=== PATIENT | male | born 1950 | race American Indian/Alaskan Native ===

== ENCOUNTER 2017-04-15 06:18 | Emergency (ER) | payer MEDICARE, OTHER ==
--- NOTE | 2017-04-15 09:44 | Emergency Department Report ---
ED Rash HPI - HPI Chief Complaint: Skin Rash Stated Complaint: TICK BITE Time Seen by Provider: 04/15/17 09:00 Duration: 2 Days Location: Back Suspected Cause: Insect (tick) Rash Symptoms: No Itching, No Facial Swelling, No Tongue/Oral Swelling, No Breathing Difficulties, No Choking Sensation, No Wheezing/Dyspnea, No Peeling, No Blistering, No Fever, No Lightheaded, No Malaise, No Myalgias Severity: moderate Other History: Patient is a 66-year-old male history of diabetes and hypertension controlled with medication who presents to ED complaining of a tick bite that he noticed on his back right side on Thursday. Patient states Thursday when he went to see his mother at the custodial he asked the nurse at the custodial who told him that it was a taken needed to be taken out so patient got the tick out. Patient states since then he, fever, dizziness, headache, blurry vision, fever or any other symptoms. Patient states he wants to be checked because he was told that he could get Lyme disease ED Review of Systems ROS: Stated complaint: TICK BITE Other details as noted in HPI Constitutional: denies: chills, fever Eyes: denies: eye pain, eye discharge, vision change ENT: denies: ear pain, throat pain Respiratory: denies: cough, shortness of breath, wheezing Cardiovascular: denies: chest pain, palpitations Endocrine: no symptoms reported Gastrointestinal: denies: abdominal pain, nausea, diarrhea Genitourinary: denies: urgency, dysuria Musculoskeletal: denies: back pain, joint swelling, arthralgia Skin: denies: rash, lesions Neurological: denies: headache, weakness, paresthesias Psychiatric: denies: anxiety, depression Hematological/Lymphatic: denies: easy bleeding, easy bruising ED Past Medical Hx - Past Medical History Hx Hypertension: Yes Hx CVA: Yes (left side wkness) Hx Congestive Heart Failure: No Hx Diabetes: Yes Hx Psychiatric Treatment: Yes Hx Asthma: No Hx COPD: No - Surgical History Additional Surgical History: left eye. LEFT ROTATOR CUFF - Social History Smoking Status: Never Smoker Substance Use Type: Alcohol - Medications Home Medications: Home Medications Medication Instructions Recorded Confirmed Last Taken Type Acetaminophen [Acetaminophen TAB] 650 mg PO Q4H PRN #60 tablet 11/10/1207/14/13 13:00 Rx Aspirin [Aspirin BABY CHEW TAB] 81 mg PO QDAY #30 tab.chew 11/10/12 07/14/13 13:00 Rx Gabapentin [Neurontin] 300 mg PO TID #30 capsule 11/10/12 07/14/13 07/14/13 13: 00 Rx Simvastatin [Zocor TAB] 40 mg PO QHS #30 tablet 11/10/12 07/14/13 07/14/13 13: 00 Rx amLODIPine [Norvasc] 10 mg PO DAILY #30 tablet 11/10/12 07/14/13 07/14/13 13:00 Rx metFORMIN [Glucophage] 1,000 mg PO BID #60 11/10/12 07/14/13 07/14/13 13:00 Rx Insulin Glargine,Hum.rec.anlog 30 unit SQ QHS 05/02/13 07/14/13 07/14/13 13:00 History [Lantus] Butalb/Acetamin/Caff 50-325-40 1 each PO Q6H PRN #10 tablet 05/03/13 07/14/13 13:00 Rx [Fioricet] Meclizine [Antivert] 25 mg PO TID PRN #20 tablet 01/20/14 Unknown Rx Amoxicillin [Amoxicillin TAB] 875 mg PO BID #28 tablet 04/15/17 Unknown Rx Rash Exam - Exam General: Vital signs noted. No distress. Alert and acting appropriately. HEENT: No Periorbital Edema, No Conjuctival Injection, No Chemosis, No Perioral Edema, No Tongue Edema, No Uvular Edema, No Compromised Airway, No Drooling Lungs: Yes Good Air Exchange (Normal Breath Sounds), No Wheezes, No Ronchi, No Stridor, No Cough, No Labored Respirations, No Retractions, No Use of Accessory Muscles, No Other Abnormal Lung Sounds Heart: Yes Regular, No Murmur Skin: Yes Erythema (very mild just at bite location), Yes Other (small raised skin at bite location, No Target Lesion observed. No remnants of tick seen), No Urticarial Rash, No Maculopapular Rash, No Morbilliform rash, No Bulla(e), No Excoriations, No Weeping, No Tenderness, No Edema, No Encrustations Other: Positive: Abdomen Normal, Neurologic Normal, Musculoskeletal Normal ED Course Vital Signs 04/15/17 04/15/17 06:20 06:27 Temperature 97.6 F 97.6 F Pulse Rate 66 66 Respiratory 16 18 Rate Blood Pressure 175/89 175/89 O2 Sat by Pulse 99 99 Oximetry ED Medical Decision Making - Medical Decision Making 66-year-old male presented with possible tick bite ED course: Patient received a dose of amoxicillin in the ED. No target lesion seen at the site, no other rash or lesions seen on skin I discussed the patient if she can't pain on palpation for 72 hours and there is a possibility of leia I'm disease is indeed truly a deer tick. I discussed the patient that due to the fact that he was not in the wounds of [place] chances of it being and did take a slim but cannot be ruled out. I discussed with the patient that he will be sent to [facility] prophylaxis antibiotic control. I discussed with the patient if he starts to develop any new symptoms such as fever, bodyaches, dizziness or any worsening symptoms to report to ED immediately. he is in no acute or respiratory distress. He understands instructions given since he would take medication. Discussed with patient to follow up with primary care physician. Critical care attestation.: If time is entered above; I have spent that time in minutes in the direct care of this critically ill patient, excluding procedure time. ED Disposition Clinical Impression: Insect bite Qualifiers: Encounter type: initial encounter Qualified Code(s): W57.XXXA - Bitten or stung by nonvenomous insect and other nonvenomous arthropods, initial encounter Tick bite of back Qualifiers: Encounter type: initial encounter Qualified Code(s): S30.860A - Insect bite ( nonvenomous) of lower back and pelvis, initial encounter; W57.XXXA - Bitten or stung by nonvenomous insect and other nonvenomous arthropods, initial encounter ; W57.XXXA - Bitten or stung by nonvenomous insect and other nonvenomous arthropods, initial encounter Disposition: DC-01 TO HOME OR SELFCARE Is pt being admited?: No Does the pt Need Aspirin: No Condition: Stable Instructions: Lyme Disease (ED), Insect Bite or Sting (ED), Tick Bite (ED) Additional Instructions: Make sure to follow up with the primary care physician as discussed. Take all your medications as you've been prescribed. If you have any worsening symptoms or develop new symptoms please return to ED immediately. Prescriptions: Amoxicillin [Amoxicillin TAB] 875 mg PO BID #28 tablet Referrals: CHRISSIE EVANS MD [Primary Care Provider] - 3-5 Days ABDULKADIR GERARDO MD [Staff Physician] - 3-5 Days [facility] [Outside] - 3-5 Days [facility] [Outside] - 3-5 Days Forms: Work/School Release Form(ED) Time of Disposition: 09:55
[2017-04-15] MEDS ORDERED: TRIMOX ONE (10:10)
[2017-04-15] MEDS ORDERED: TRIMOX PO ONE (10:12)
[2017-04-15 10:13] VITALS: BP 165/74
== END 2017-04-15 10:13 | disposition home or self-care (01) ==
LOC: ED 06:18
DX: S30.860A Insect bite (nonvenomous) of lower back and pelvis, initial encounter (principal); I10 Essential (primary) hypertension; E11.9 Type 2 diabetes mellitus without complications; I69.359 Hemiplegia and hemiparesis following cerebral infarction affecting unspecified side; Z79.4 Long term (current) use of insulin; Z88.6 Allergy status to analgesic agent; W57.XXXA Bitten or stung by nonvenomous insect and other nonvenomous arthropods, initial encounter; Y93.89 Activity, other specified; Y92.89 Other specified places as the place of occurrence of the external cause; Y99.8 Other external cause status
CPT/HCPCS: 99282

== ENCOUNTER 2019-01-05 06:00 | Emergency (ER) | payer MEDICARE, OTHER ==
--- NOTE | 2019-01-05 08:49 | Emergency Department Report ---
ED Dizziness HPI - General Chief Complaint: Dizziness Stated Complaint: DIZZINESS Source: patient Mode of arrival: Ambulatory Limitations: No Limitations - History of Present Illness Initial Comments: Patient is a 68-year-old male that presents emergency room with complaints of d izziness and falling 2 weeks. Patient states it is now becoming more frequent. Patient states he has fallen multiple times per day due to the dizziness. Patient states his dizziness is better with rest and lying flat and is worse with exertion and position. Patient states he feels like the room is spinning. Patient states he has to use the wall to walk due to his unsteady gait and dizziness. Patient denies hitting his head. Patient denies trauma to his head. MD Complaint: dizziness, lightheadedness -: Sudden Timing: gradual onset Description: lightheadedness, difficulty walking History of Same: No History of Trauma: No Severity: severe Improves With: rest Worsens With: movement, position, exertion Associated Symptoms: weakness. denies: ataxia, chest pain, confusion, cough, diaphoresis, fever/chills, loss of appetite, malaise, rash, seizure, shortness of breath - Related Data Home Medications Medication Instructions Recorded Confirmed Last Taken Insulin Glargine,Hum.rec.anlog 30 unit SQ QHS 05/02/13 07/14/13 07/14/13 13:00 [Lantus] Previous Rx's Medication Instructions Recorded Last Taken Type Acetaminophen [Acetaminophen TAB] 650 mg PO Q4H PRN #60 tablet 11/10/12 07/14/13 13:00 Rx Aspirin [Aspirin BABY CHEW TAB] 81 mg PO QDAY #30 tab.chew 11/10/12 07/14/13 13:00 Rx Gabapentin 300 mg PO TID #30 capsule 11/10/12 07/14/13 13:00 Rx Simvastatin [Zocor TAB] 40 mg PO QHS #30 tablet 11/10/12 07/14/13 13:00 Rx amLODIPine 10 mg PO DAILY #30 tablet 11/10/12 07/14/13 13:00 Rx metFORMIN [Glucophage] 1,000 mg PO BID #60 11/10/12 07/14/13 13:00 Rx Butalb/Acetamin/Caff 50-325-40 1 each PO Q6H PRN #10 tablet 05/03/13 07/14/13 13:00 Rx [Fioricet] Meclizine [Antivert] 25 mg PO TID PRN #20 tablet 01/20/14 Unknown Rx Amoxicillin [Amoxicillin TAB] 875 mg PO BID #28 tablet 04/15/17 Unknown Rx Allergies Allergy/AdvReac Type Severity Reaction Status Date / Time codeine Allergy Rash Verified 01/20/14 08:17 ED Review of Systems ROS: Stated complaint: DIZZINESS Other details as noted in HPI Constitutional: denies: chills, fever Eyes: denies: eye pain, eye discharge, vision change ENT: denies: ear pain, throat pain Respiratory: denies: cough, shortness of breath, wheezing Cardiovascular: denies: chest pain, palpitations Endocrine: no symptoms reported Gastrointestinal: denies: abdominal pain, nausea, diarrhea Genitourinary: denies: urgency, dysuria Musculoskeletal: denies: back pain, joint swelling, arthralgia Skin: denies: rash, lesions Neurological: weakness, abnormal gait. denies: headache, paresthesias Psychiatric: denies: anxiety, depression Hematological/Lymphatic: denies: easy bleeding, easy bruising ED Past Medical Hx - Past Medical History Previous Medical History?: Yes Hx Hypertension: Yes Hx CVA: Yes (left side wkness) Hx Congestive Heart Failure: No Hx Diabetes: Yes Hx Psychiatric Treatment: Yes Hx Asthma: No Hx COPD: No - Surgical History Past Surgical History?: Yes Additional Surgical History: left eye. LEFT ROTATOR CUFF - Family History Family history: no significant - Social History Smoking Status: Never Smoker Substance Use Type: None - Medications Home Medications: Home Medications Medication Instructions Recorded Confirmed Last Taken Type Acetaminophen [Acetaminophen TAB] 650 mg PO Q4H PRN #60 tablet 11/10/12 07/14/13 07/14/13 13:00 Rx Aspirin [Aspirin BABY CHEW TAB] 81 mg PO QDAY #30 tab.chew 11/10/12 07/14/13 07/14/13 13:00 Rx Gabapentin 300 mg PO TID #30 capsule 11/10/12 07/14/13 07/14/13 13:00 Rx Simvastatin [Zocor TAB] 40 mg PO QHS #30 tablet 11/10/12 07/14/13 07/14/13 13:00 Rx amLODIPine 10 mg PO DAILY #30 tablet 11/10/12 07/14/13 07/14/13 13:00 Rx metFORMIN [Glucophage] 1,000 mg PO BID #60 11/10/12 07/14/13 07/14/13 13:00 Rx Insulin Glargine,Hum.rec.anlog 30 unit SQ QHS 05/02/13 07/14/13 07/14/13 13:00 History [Lantus] Butalb/Acetamin/Caff 50-325-40 1 each PO Q6H PRN #10 tablet 05/03/13 07/14/13 07/14/13 13:00 Rx [Fioricet] Meclizine [Antivert] 25 mg PO TID PRN #20 tablet 01/20/14 Unknown Rx Amoxicillin [Amoxicillin TAB] 875 mg PO BID #28 tablet 04/15/17 Unknown Rx ED Physical Exam - General Limitations: No Limitations General appearance: alert, in no apparent distress - Head Head exam: Present: atraumatic, normocephalic - Eye Eye exam: Present: normal appearance, PERRL Pupils: Present: normal accommodation - ENT ENT exam: Present: mucous membranes moist - Neck Neck exam: Present: normal inspection - Respiratory Respiratory exam: Present: normal lung sounds bilaterally. Absent: respiratory distress, wheezes, rales - Cardiovascular Cardiovascular Exam: Present: regular rate, normal rhythm. Absent: systolic murmur, diastolic murmur, rubs, gallop - GI/Abdominal GI/Abdominal exam: Present: soft, normal bowel sounds. Absent: distended, tenderness, guarding - Rectal Rectal exam: Present: deferred - Extremities Exam Extremities exam: Present: normal inspection, full ROM, normal capillary refill. Absent: tenderness, pedal edema, calf tenderness - Back Exam Back exam: Present: normal inspection - Neurological Exam Neurological exam: Present: alert, oriented X3, abnormal gait - Expanded Neurological Exam Expanded Best Eye Response (Ipava): (4) open spontaneously Best Motor Response (Ipava): (6) obeys commands Best Verbal Response (Ipava): (5) oriented Joseline Total: 15 - Psychiatric Psychiatric exam: Present: normal affect, normal mood - Skin Skin exam: Present: warm, dry, intact, normal color. Absent: rash ED Course Vital Signs 01/05/19 01/05/19 01/05/19 06:03 07:48 09:41 Temperature 98.2 F Pulse Rate 60 61 52 L Respiratory 16 16 20 Rate Blood Pressure 146/81 Blood Pressure 130/85 115/58 [Right] O2 Sat by Pulse 97 98 95 Oximetry 01/05/19 01/05/19 11:30 12:40 Temperature Pulse Rate 50 L 70 Respiratory 18 18 Rate Blood Pressure Blood Pressure 133/88 144/88 [Right] O2 Sat by Pulse 95 98 Oximetry - Reevaluation(s) Reevaluation #1: Discussed all results with patient. I discussed plan of care and transfer patient. Patient agrees with plan of care and transfer. 01/05/19 11:09 - Consultations Consultation #1: [facility] surgery at [place] consult. 01/05/19 11:12 [facility] [place] has accepted the patient at the [facility]. Dr. toribio has accepted 01/05/19 11:39 ED Medical Decision Making - Lab Data Result diagrams: 01/05/19 09:20 01/05/19 09:20 - EKG Data -: EKG Interpreted by Ct EKG shows normal: sinus rhythm, axis, intervals, QRS complexes, ST-T waves Rate: normal - Radiology Data Radiology results: report reviewed CT head/brain wo con INDICATION / CLINICAL INFORMATION: 68 years Male; dizziness. TECHNIQUE: Routine CT head without contrast. All CT scans at this location are performed using CT dose reduction for ALARA by means of automated exposure control. COMPARISON: The study is compared to the previous CT of 01/10/2014. FINDINGS: BRAIN / INTRACRANIAL CONTENTS: There is a focus of increased attenuation extending inferiorly from the frontal horn of the right lateral ventricle measuring approximately 1.8 cm in greatest AP dimension. There does not appear to be significant surrounding edema. However, this finding has developed from the previous study and would be compatible with acute hemorrhage. There is continued extensive cerebral white matter disease most consistent with advanced microvascular angiopathy. The findings again extend to the right frontal subcortical region compatible with old infarct. The findings also include the ganglia capsular regions and correlate with the prior study. The ventricular system does not appear to significant changed in size. ORBITS: No significant abnormality of visualized orbits. SINUSES / MASTOIDS: There is scattered opacification and mucosal thickening involving the maxillary, ethmoid and frontal sinuses. CRANIOCERVICAL JUNCTION: No significant abnormality. ADDITIONAL FINDINGS: None. IMPRESSION: 1. There has been interval development of a 1.8 cm focus of increased attenuation along the inferior right frontal horn indicative of acute hemorrhage as detailed above. 2. There is continued extensive microvascular angiopathy as described - Medical Decision Making is a 68-year-old male that presents emergency room with complaints of dizziness, lightheadedness and frequent falls and abnormal gait. Patient found to have intracranial hemorrhage. Patient transferred to [facility] for neurosurgery service. Patient is stable for transport. Patient's labs essentially unremarkable. Patient found to have an elevated d-dimer but no other symptoms of a PE. - Differential Diagnosis intercranial hemorrhage. Dizziness. Lightheadedness. Abnormal gait. Critical Care Time: Yes Critical care time in (mins) excluding proc time.: 45 Critical care attestation.: If time is entered above; I have spent that time in minutes in the direct care of this critically ill patient, excluding procedure time. Critical Care Time: 45 minutes ED Disposition Clinical Impression: Abnormal gait, Dizziness, Light headedness, Frequent falls ICH (intracerebral hemorrhage) Qualifiers: Intracerebral hemorrhage etiology: nontraumatic Cerebral hemorrhage location: unspecified cerebral location Laterality: unspecified laterality Qualified Code(s): I61.9 - Nontraumatic intracerebral hemorrhage, unspecified Disposition: DC/TX-70 ANOTHER TYPE HLTHCARE Is pt being admited?: No Does the pt Need Aspirin: No Condition: Critical Time of Disposition: 11:14
--- NOTE | 2019-01-05 09:27 | XRay Report ---
CHEST 1 VIEW INDICATION: dizziness. COMPARISON: None. FINDINGS: Support devices: None. Heart: Within normal limits. Pulmonary vasculature: Normal. Lungs/Pleura: No acute air space or interstitial disease. Additional findings: None. IMPRESSION: Normal chest. Signer Name: Kali Hill MD Signed: 01/05/2019 9:23 AM Workstation Name: [id number]
[2019-01-05 09:44] LABS: Basophils % (Auto) 0.7 % (0.0-1.8); Eosinophils # (Auto) 0.3 K/mm3 (0.0-0.4); Eosinophils % (Auto) 6.2 % (0.0-4.3); Hematocrit 38.5 % (35.5-45.6); Hemoglobin 11.9 gm/dl (11.8-15.2); Lymphocytes # (Auto) 1.6 K/mm3 (1.2-5.4); Lymphocytes % (Auto) 31.9 % (13.4-35.0); Mean Corpuscular HGB Conc 31 % (32-34); Monocytes # (Auto) 0.5 K/mm3 (0.0-0.8); Monocytes % (Auto) 9.7 % (0.0-7.3); Platelet Count 197 K/mm3 (140-440); Red Blood Count 5.89 M/mm3 (3.65-5.03); Red Cell Distribution Width 16.7 % (13.2-15.2)
[2019-01-05 09:50] LABS: Mean Corpuscular Volume 66 fl (84-94)
[2019-01-05 10:05] LABS: Creatine Kinase MB 1.8 ng/mL (0.0-4.0)
[2019-01-05 10:08] LABS: Alanine Aminotransferase 12 units/L (7-56); Albumin 3.8 g/dL (3.9-5); BUN/Creatinine Ratio 11; Blood Urea Nitrogen 12 mg/dL (9-20); Hemolysis Index 6
--- NOTE | 2019-01-05 10:59 | Cat Scan Report ---
CT head/brain wo con INDICATION / CLINICAL INFORMATION: 68 years Male; dizziness. TECHNIQUE: Routine CT head without contrast. All CT scans at this location are performed using CT dos e reduction for ALARA by means of automated exposure control. COMPARISON: The study is compared to the previous CT of 01/10/2014. FINDINGS: BRAIN / INTRACRANIAL CONTENTS: There is a focus of increased attenuation extending inferiorly from th e frontal horn of the right lateral ventricle measuring approximately 1.8 cm in greatest AP dimension . There does not appear to be significant surrounding edema. However, this finding has developed from the previous study and would be compatible with acute hemorrhage. There is continued extensive cerebral white matter disease most consistent with advanced microvascula r angiopathy. The findings again extend to the right frontal subcortical region compatible with old i nfarct. The findings also include the ganglia capsular regions and correlate with the prior study. Th e ventricular system does not appear to significant changed in size. ORBITS: No significant abnormality of visualized orbits. SINUSES / MASTOIDS: There is scattered opacification and mucosal thickening involving the maxillary, ethmoid and frontal sinuses. CRANIOCERVICAL JUNCTION: No significant abnormality. ADDITIONAL FINDINGS: None. IMPRESSION: 1. There has been interval development of a 1.8 cm focus of increased attenuation along the inferior right frontal horn indicative of acute hemorrhage as detailed above. 2. There is continued extensive microvascular angiopathy as described The findings represent a positive clinical test result and were discovered at 9:55 AM and called to Geronimo cunha, the nurse in the ER, at 9:57 AM Central standard time. Signer Name: Gerald Webber MD Signed: 01/05/2019 10:54 AM Workstation Name: [id number]
[2019-01-05 11:26] LABS: INR 1.02 (0.87-1.13); Partial Thromboplastin Time 28.8 Sec. (24.2-36.6)
[2019-01-05] MEDS ORDERED: levETIRAcetam 1000 MG/NS 0.75% 1,000 MG/100 ML BAG IV ONE (11:39)
[2019-01-05 15:09] VITALS: BP 133/80
== END 2019-01-05 15:08 | disposition other institution (70) ==
LOC: ED 06:00
DX: S06.369A Traumatic hemorrhage of cerebrum, unspecified, with loss of consciousness of unspecified duration, initial encounter (principal); I10 Essential (primary) hypertension; E11.9 Type 2 diabetes mellitus without complications; W18.30XA Fall on same level, unspecified, initial encounter; Y93.89 Activity, other specified; Y92.89 Other specified places as the place of occurrence of the external cause; Y99.8 Other external cause status; Z86.73 Personal history of transient ischemic attack (TIA), and cerebral infarction without residual deficits
CPT/HCPCS: 36415; 70450; 71045; 80053; 82550; 82553; 84484; 85025; 85379; 85610; 85730; 93005; 93010; 96374; 99291; J1953

== ENCOUNTER 2019-01-13 11:59 | Inpatient (IN) | payer MEDICARE, OTHER ==
--- NOTE | 2019-01-13 12:56 | Event Note ---
ED Screening Note Date of service: 01/13/19 Time: 12:52 ED Screening Note: 68 y o male return to ED after d/c from Neurosurgery at [place] on thursday cc of dizziness and head tenderness worsening this morning so he came in. This initial assessment/diagnostic orders/clinical plan/treatment(s) is/are subject to change based on patients health status, clinical progression and re- assessment by fellow clinical providers in the ED. Further treatment and workup at subsequent clinical providers discretion. Patient/guardian urged not to elope from the ED as their condition may be serious if not clinically assessed and managed. Initial orders include: labs CT
[2019-01-13 13:42] LABS: Basophils % (Auto) 0.6 % (0.0-1.8); Eosinophils # (Auto) 0.3 K/mm3 (0.0-0.4); Eosinophils % (Auto) 4.6 % (0.0-4.3); Hematocrit 38.5 % (35.5-45.6); Hemoglobin 11.9 gm/dl (11.8-15.2); Lymphocytes # (Auto) 2.1 K/mm3 (1.2-5.4); Lymphocytes % (Auto) 28.6 % (13.4-35.0); Mean Corpuscular HGB Conc 31 % (32-34); Monocytes # (Auto) 0.9 K/mm3 (0.0-0.8); Monocytes % (Auto) 12.2 % (0.0-7.3); Platelet Count 290 K/mm3 (140-440); Red Blood Count 5.94 M/mm3 (3.65-5.03); Red Cell Distribution Width 16.3 % (13.2-15.2)
[2019-01-13 13:44] LABS: Mean Corpuscular Volume 65 fl (84-94)
--- NOTE | 2019-01-13 13:47 | Cat Scan Report ---
CT BRAIN: 01/13/2019 INDICATION / CLINICAL INFORMATION: Medical Clearance Psych. COMPARISON: 01/05/2019 FINDINGS: BRAIN/INTRACRANIAL STRUCTURES: Unenhanced CT images of the brain were obtained and compared to the pr ior exam from 01/05/2019. The previously seen hemorrhagic lesion in the right inferior frontal lobe is no longer visible as a h yperdense abnormality. Prominent diffuse white matter hypoattenuation is present throughout the cerebral hemispheric white m atter, and including the area of the recently seen hemorrhage. There is no evidence of acute hemorrhage. Age-related atrophic changes are present. There are no abnormal extra-axial fluid collections. EXTRACRANIAL STRUCTURES: Unremarkable. IMPRESSION: Evolving right frontal parenchymal hemorrhage. Extensive chronic and age-related changes. All CT scans at this location are performed using dose reduction to ALARA by means of automated expos ure control. Signer Name: Robinson Lozada MD Signed: 01/13/2019 1:43 PM Workstation Name: [id number]
[2019-01-13 13:48] LABS: INR 1.07 (0.87-1.13); Partial Thromboplastin Time 28.1 Sec. (24.2-36.6)
[2019-01-13 14:00] LABS: Alanine Aminotransferase 12 units/L (7-56); Albumin 4.1 g/dL (3.9-5); BUN/Creatinine Ratio 14; Blood Urea Nitrogen 15 mg/dL (9-20); Calcium 9.5 mg/dL (8.4-10.2); Hemolysis Index 0
--- NOTE | 2019-01-13 14:26 | Emergency Department Report ---
ED Neuro Deficit HPI - General Chief Complaint: Neuro Symptoms/Deficit Stated Complaint: CT SCAN Time Seen by Provider: 01/13/19 14:15 Source: patient Mode of arrival: Ambulatory Limitations: No Limitations - History of Present Illness Initial Comments: Patient is a 68-year-old male Emergency room with worsening dizziness. Patient states she's having difficulties sitting up due to the dizziness. Patient states she was transferred a few weeks back to [place] for a bleed. Patient states she was discharged from her and told to follow-up if symptoms worsened or if he needed a repeat CT. Patient denies headache. Patient denies difficulty walking. Patient states he came here by private vehicle and ambulate to the hospital. Patient denies chest pain shortness of breath. -: Sudden Location: other (dizziness) History of same: Yes Place: home Severity: moderate Quality: constant Improves With: rest Worsens With: other On Anticoagulants: No Context: sudden onset Associated Symptoms: denies: confusion, chest pain, cough, diaphoresis, fever/chills, headaches, loss of appetite, malise, nausea/vomiting, vertigo, seizures, shortness of breath, syncope, weakness Treatments Prior to Arrival: none - Related Data Home Medications: Home Medications Medication Instructions Recorded Confirmed Last Taken Tamsulosin [Flomax] 0.4 mg PO QHS 01/13/19 01/13/19 01/12/19 21:00 Previous Rx's Medication Instructions Recorded Last Taken Type Aspirin [Aspirin BABY CHEW TAB] 81 mg PO QDAY #30 tab.chew 11/10/12 07/14/13 13:00 Rx Gabapentin 300 mg PO TID #30 capsule 11/10/12 07/14/13 13:00 Rx Simvastatin [Zocor TAB] 40 mg PO QHS #30 tablet 11/10/12 07/14/13 13:00 Rx amLODIPine 10 mg PO DAILY #30 tablet 11/10/12 01/13/19 Rx 0800 metFORMIN [Glucophage] 1,000 mg PO BID #60 11/10/12 01/13/19 Rx 0800 Allergies/Adverse Reactions: Allergies Allergy/AdvReac Type Severity Reaction Status Date / Time codeine Allergy Rash Verified 01/13/19 17:31 ED Review of Systems ROS: Stated complaint: CT SCAN Other details as noted in HPI Constitutional: denies: chills, fever Eyes: denies: eye pain, eye discharge, vision change ENT: denies: ear pain, throat pain Respiratory: denies: cough, shortness of breath, wheezing Cardiovascular: denies: chest pain, palpitations Endocrine: no symptoms reported Gastrointestinal: denies: abdominal pain, nausea, diarrhea Genitourinary: denies: urgency, dysuria Musculoskeletal: denies: back pain, joint swelling, arthralgia Skin: denies: rash, lesions Neurological: as per HPI. denies: headache, weakness, paresthesias Psychiatric: denies: anxiety, depression Hematological/Lymphatic: denies: easy bleeding, easy bruising ED Past Medical Hx - Past Medical History Previous Medical History?: Yes Hx Hypertension: Yes Hx CVA: Yes (left side wkness) Hx Congestive Heart Failure: No Hx Diabetes: Yes Hx Psychiatric Treatment: Yes Hx Asthma: No Hx COPD: No - Surgical History Past Surgical History?: Yes Additional Surgical History: left eye. LEFT ROTATOR CUFF - Social History Smoking Status: Former Smoker Substance Use Type: None - Medications Home Medications: Home Medications Medication Instructions Recorded Confirmed Last Taken Type Aspirin [Aspirin BABY CHEW TAB] 81 mg PO QDAY #30 tab.chew 11/10/12 01/13/19 07/14/13 13:00 Rx Gabapentin 300 mg PO TID #30 capsule 11/10/12 01/13/19 07/14/13 13:00 Rx Simvastatin [Zocor TAB] 40 mg PO QHS #30 tablet 11/10/12 01/13/19 07/14/13 13:00 Rx amLODIPine 10 mg PO DAILY #30 tablet 11/10/12 01/13/19 01/13/19 Rx 0800 metFORMIN [Glucophage] 1,000 mg PO BID #60 11/10/12 01/13/19 01/13/19 Rx 0800 Tamsulosin [Flomax] 0.4 mg PO QHS 01/13/19 01/13/19 01/12/19 21:00 History ED Neuro Physical Exam - General Limitations: No Limitations General appearance: alert, in no apparent distress Suspected Stroke: No - Head Head exam: Present: atraumatic, normocephalic - Eye Eye exam: Present: normal appearance - ENT ENT exam: Present: mucous membranes moist - Neck Neck exam: Present: normal inspection - Respiratory Respiratory exam: Present: normal lung sounds bilaterally. Absent: respiratory distress, wheezes, rales - Cardiovascular Cardiovascular Exam: Present: regular rate, normal rhythm. Absent: systolic murmur, diastolic murmur, rubs, gallop - GI/Abdominal GI/Abdominal exam: Present: soft, normal bowel sounds - Rectal Rectal exam: Present: deferred - Extremities Exam Extremities exam: Present: normal inspection - Back Exam Back exam: Present: normal inspection - Neurological Exam Neurological exam: Present: alert, oriented X3 - NIHSS Assessment Interval: Baseline 1a. Level of Consciousness: alert/keenly responsive 1b. LOC Questions: answers both correctly 1c. LOC Commands: performs tasks correctly 2. Best Gaze: normal 3. Visual: no visual loss 4. Facial Palsy: normal symmetrical movement 5b. Motor Arm Right: no drift 5a. Motor Arm Left: no drift 6a. Motor Leg Left: no drift 6b. Motor Leg Right: no drift 7. Limb Ataxia: absent 8. Sensory: normal 9. Best Language: no aphasia 10. Dysarthria: normal 11. Extinction/Inattention: no abnormality Total Score: 0 Stroke Severity: No Stroke Symptoms - Psychiatric Psychiatric exam: Present: normal affect, normal mood - Skin Skin exam: Present: warm, dry, intact, normal color. Absent: rash ED Course Vital Signs 01/13/19 01/13/19 01/13/19 12:46 14:20 14:30 Temperature 97.9 F Pulse Rate 83 66 72 Respiratory 20 9 L 21 Rate Blood Pressure 129/78 143/76 O2 Sat by Pulse 96 100 98 Oximetry 01/13/19 01/13/19 01/13/19 14:46 15:00 15:15 Temperature Pulse Rate 69 69 67 Respiratory 18 19 20 Rate Blood Pressure 154/67 154/67 155/86 O2 Sat by Pulse 97 97 95 Oximetry 01/13/19 01/13/19 01/13/19 15:30 15:46 16:00 Temperature Pulse Rate 69 68 67 Respiratory 21 18 15 Rate Blood Pressure 155/86 166/89 166/89 O2 Sat by Pulse 98 95 99 Oximetry 01/13/19 01/13/19 01/13/19 16:16 16:30 16:45 Temperature Pulse Rate 66 70 77 Respiratory 13 20 15 Rate Blood Pressure 172/86 172/86 172/88 O2 Sat by Pulse 95 97 96 Oximetry 01/13/19 01/13/19 17:00 17:15 Temperature Pulse Rate 72 75 Respiratory 24 17 Rate Blood Pressure 172/88 148/85 O2 Sat by Pulse 95 96 Oximetry - Reevaluation(s) Reevaluation #1: I discussed all results with patient. I discussed plan of care outpatient. Patient agrees with plan of care and admission. 01/13/19 15:55 - Consultations Consultation #1: [place] transfer center consult. 01/13/19 14:30 I discussed case with Dr. Anurag Tolbert a neurosurgeon [place]. Dr. Tolbert recommends the patient be admitted here for general neurology, since the bleeding has not increased increased in size. 01/13/19 15:37 Consultation #2: Hospitalist consult for admission. Hospitalist admit patient. Hospitalist to place orders. 01/13/19 15:55 - Lab Data Result diagrams: 01/13/19 13:17 01/13/19 13:17 Lab Results 01/13/19 01/13/19 01/13/19 Range/Units 13:17 13:17 13:17 WBC 7.5 (4.5-11.0) K/mm3 RBC 5.94 H (3.65-5.03) M/mm3 Hgb 11.9 (11.8-15.2) gm/dl Hct 38.5 (35.5-45.6) % MCV 65 L (84-94) fl MCH 20 L (28-32) pg MCHC 31 L (32-34) % RDW 16.3 H (13.2-15.2) % Plt Count 290 (140-440) K/mm3 Lymph % (Auto) 28.6 (13.4-35.0) % [place] % (Auto) 12.2 H (0.0-7.3) % Eos % (Auto) 4.6 H (0.0-4.3) % Baso % (Auto) 0.6 (0.0-1.8) % Lymph # 2.1 (1.2-5.4) K/mm3 [place] # 0.9 H (0.0-0.8) K/mm3 Eos # 0.3 (0.0-0.4) K/mm3 Baso # 0.0 (0.0-0.1) K/mm3 Seg Neutrophils % 54.0 (40.0-70.0) % Seg Neutrophils # 4.0 (1.8-7.7) K/mm3 PT (12.2-14.9) Sec. INR (0.87-1.13) APTT (24.2-36.6) Sec. Sodium 139 (137-145) mmol/L Potassium 4.0 (3.6-5.0) mmol/L Chloride 99.5 (98-107) mmol/L Carbon Dioxide 26 (22-30) mmol/L Anion Gap 18 mmol/L BUN 15 (9-20) mg/dL Creatinine 1.1 (0.8-1.5) mg/dL Estimated GFR > 60 ml/min BUN/Creatinine Ratio 14 % Glucose 92 (75-100) mg/dL Calcium 9.5 (8.4-10.2) mg/dL Total Bilirubin 0.30 (0.1-1.2) mg/dL AST 15 (5-40) units/L ALT 12 (7-56) units/L Alkaline Phosphatase 69 (35-129) units/L Total Protein 7.8 (6.3-8.2) g/dL Albumin 4.1 (3.9-5) g/dL Albumin/Globulin Ratio 1.1 % Plasma/Serum Alcohol < 0.01 (0-0.07) % 01/13/ Range/Units 13:17 WBC (4.5-11.0) K/mm3 RBC (3.65-5.03) M/mm3 Hgb (11.8-15.2) gm/dl Hct (35.5-45.6) % MCV (84-94) fl MCH (28-32) pg MCHC (32-34) % RDW (13.2-15.2) % Plt Count (140-440) K/mm3 Lymph % (Auto) (13.4-35.0) % [place] % (Auto) (0.0-7.3) % Eos % (Auto) (0.0-4.3) % Baso % (Auto) (0.0-1.8) % Lymph # (1.2-5.4) K/mm3 [place] # (0.0-0.8) K/mm3 Eos # (0.0-0.4) K/mm3 Baso # (0.0-0.1) K/mm3 Seg Neutrophils % (40.0-70.0) % Seg Neutrophils # (1.8-7.7) K/mm3 PT 13.8 (12.2-14.9) Sec. INR 1.07 (0.87-1.13) APTT 28.1 (24.2-36.6) Sec. Sodium (137-145) mmol/L Potassium (3.6-5.0) mmol/L Chloride (98-107) mmol/L Carbon Dioxide (22-30) mmol/L Anion Gap mmol/L BUN (9-20) mg/dL Creatinine (0.8-1.5) mg/dL Estimated GFR ml/min BUN/Creatinine Ratio % Glucose (75-100) mg/dL Calcium (8.4-10.2) mg/dL Total Bilirubin (0.1-1.2) mg/dL AST (5-40) units/L ALT (7-56) units/L Alkaline Phosphatase (35-129) units/L Total Protein (6.3-8.2) g/dL Albumin (3.9-5) g/dL Albumin/Globulin Ratio % Plasma/Serum Alcohol (0-0.07) % - Radiology Data Radiology results: report reviewed Evolving interparenchymal hemorrhage. - Medical Decision Making Patient is a 68-year-old male Emergency room with increased dizziness. Patient was recently here on January 05 and found to have an acute intracranial hemorrhage. Patient's CT done today and shows decrease in the size of the hemorrhage and thus is not a worsening of his hemorrhage. Patient admitted to the hospitalist service. Patient admitted to the hospital service after I counseled with [place] neurosurgery and they recommend a general neurology consult in the hospital. [place] neurosurgeon states is not important to transfer the patient back up to [place]. Patient's labs unremarkable. - Differential Diagnosis dizziness. Intracranial hemorrhage. Critical Care Time: Yes Critical care time in (mins) excluding proc time.: 35 Critical care attestation.: If time is entered above; I have spent that time in minutes in the direct care of this critically ill patient, excluding procedure time. Critical Care Time: 35 minutes ED Disposition Clinical Impression: Dizziness, Light headedness ICH (intracerebral hemorrhage) Qualifiers: Intracerebral hemorrhage etiology: nontraumatic Cerebral hemorrhage location: unspecified cerebral location Laterality: right Qualified Code(s): I61.9 - Nontraumatic intracerebral hemorrhage, unspecified Disposition: DC-09 OP ADMIT IP TO THIS HOSP Is pt being admited?: Yes Does the pt Need Aspirin: No Condition: Critical Time of Disposition: 15:38
--- NOTE | 2019-01-13 15:54 | History and Physical Report ---
History of Present Illness Chief complaint: I get dizzy, and i keep passing out, and I feel tired History of present illness: 68 YO Male with Obesity, HTN, HLD, CVA with LHP , ICH presents to ED for evaluation. Pt states that he has experienced weakness and dizziness over the past 2 weeks. Pt seen and evaluated in ED on 01/05/19 for the same symptoms. Pt found to have Right Frontal ICH and was transferred to [place] for Neurosurgical Evaluation. Pt represents for the same symptoms today. Pt transported to [facility] via private vehicle. Pt seen and evaluated in ED and found to have recurrent dizziness. CT head shows resolving Right ICH. Neurosurgery team notified, and deemed pt does not require transfer, and recommend Physical/Rehab therapy. Pt denies fever, chills, CP, Palpitations, JIMÉNEZ, NVD, Syncope, BRBPR, Productive cough, skin rash or recent ill contacts. Prior admission on 05/26/12 reviewed. All listed medication reconciled at time of admission. Pt placed in observation status and admitted to [facility] unit. Neurology consulted in ED. Past History Past Medical History: other (see hpi) Past Surgical History: Other (Left Eye, Left Rotator Cuff) Social history: single. denies: smoking, alcohol abuse, prescription drug abuse Family history: diabetes, hypertension Medications and Allergies Allergies Allergy/AdvReac Type Severity Reaction Status Date / Time codeine Allergy Rash Verified 01/20/14 08:17 Home Medications Medication Instructions Recorded Confirmed Last Taken Type Acetaminophen [Acetaminophen TAB] 650 mg PO Q4H PRN #60 tablet 11/10/12 07/14/13 07/14/13 13:00 Rx Aspirin [Aspirin BABY CHEW TAB] 81 mg PO QDAY #30 tab.chew 11/10/12 07/14/13 07/14/13 13:00 Rx Gabapentin 300 mg PO TID #30 capsule 11/10/12 07/14/13 07/14/13 13:00 Rx Simvastatin [Zocor TAB] 40 mg PO QHS #30 tablet 11/10/12 07/14/13 07/14/13 13:00 Rx amLODIPine 10 mg PO DAILY #30 tablet 11/10/12 07/14/13 07/14/13 13:00 Rx metFORMIN [Glucophage] 1,000 mg PO BID #60 11/10/12 07/14/13 07/14/13 13:00 Rx Insulin Glargine,Hum.rec.anlog 30 unit SQ QHS 05/02/13 07/14/13 07/14/13 13:00 History [Lantus] Butalb/Acetamin/Caff 50-325-40 1 each PO Q6H PRN #10 tablet 05/03/13 07/14/13 07/14/13 13:00 Rx [Fioricet] Meclizine [Antivert] 25 mg PO TID PRN #20 tablet 01/20/14 Unknown Rx Amoxicillin [Amoxicillin TAB] 875 mg PO BID #28 tablet 04/15/17 Unknown Rx Review of Systems Constitutional: weakness, no weight gain, no fever, no chills, no sweats Ears, nose, mouth and throat: no ear discharge, no decreased hearing, no nose pain, no nasal congestion, no nasal discharge Cardiovascular: no chest pain, no orthopnea, no rapid/irregular heart beat, no edema, no lightheadedness, no shortness of breath Respiratory: no cough, no excessive sputum, no shortness of breath, no dyspnea on exertion Gastrointestinal: no abdominal pain, no nausea, no diarrhea, no constipation, no change in bowel habits Genitourinary Male: no hematuria, no flank pain, no discharge, no urinary frequency, no urinary hesitancy, no nocturia Rectal: no pain, no incontinence, no bleeding Musculoskeletal: no neck stiffness, no neck pain, no shooting arm pain, no shooting leg pain, no leg numbness/tingling, no redness of joints Integumentary: no rash, no pruritis, no redness, no boils Neurological: no transient paralysis, no paralysis, no weakness, no parathesias, no numbness, no syncope, no tremors Psychiatric: no anxiety, no memory loss, no change in sleep habits, no sleep disturbances, no insomnia, no change in appetite Endocrine: no cold intolerance, no heat intolerance, no polyphagia, no polydipsia, no polyuria, no excessive sweating Hematologic/Lymphatic: no easy bruising, no easy bleeding, no lymphedema Allergic/Immunologic: no urticaria, no allergic rhinitis, no wheezing, no anaphylaxis Exam - Constitutional Vitals: Temp Pulse Resp BP Pulse Ox 97.9 F 68 18 166/89 95 01/13/19 12:46 01/13/19 15:46 01/13/19 15:46 01/13/19 15:46 01/13/19 15:46 General appearance: Present: mild distress, obese - EENT Eyes: Present: PERRL ENT: hearing intact, clear oral mucosa - Neck Neck: Present: supple, normal ROM - Respiratory Respiratory effort: normal Respiratory: bilateral: CTA - Cardiovascular Heart Sounds: Present: S1 & S2. Absent: rub, click - Extremities Extremities: pulses symmetrical, No edema Peripheral Pulses: within normal limits - Abdominal General gastrointestinal: Present: soft, non-tender, non-distended, normal bowel sounds Male genitourinary: Present: normal - Integumentary Integumentary: Present: clear, warm, dry - Musculoskeletal Musculoskeletal: gait normal, strength equal bilaterally - Psychiatric Psychiatric: appropriate mood/affect, intact judgment & insight - Neurologic Neurologic: CNII-XII intact, moves all extremities Results - Labs CBC & Chem 7: 01/13/19 13:17 01/13/19 13:17 Labs: Abnormal lab results 01/13/19 Range/Units 13:17 RBC 5.94 H (3.65-5.03) M/mm3 MCV 65 L (84-94) fl MCH 20 L (28-32) pg MCHC 31 L (32-34) % RDW 16.3 H (13.2-15.2) % Sebastian % (Auto) 12.2 H (0.0-7.3) % Eos % (Auto) 4.6 H (0.0-4.3) % Sebastian # 0.9 H (0.0-0.8) K/mm3 Assessment and Plan - Patient Problems (1) ICH (intracerebral hemorrhage) Current Visit: Yes Status: Acute Qualifiers: Intracerebral hemorrhage etiology: nontraumatic Cerebral hemorrhage location: unspecified cerebral location Laterality: right Qualified Code(s): I61.9 - Nontraumatic intracerebral hemorrhage, unspecified Plan to address problem: Resolving, CT head, neuro check, neurology consulted, Neurosurgery consulted and recommend admission to [facility] and rehab therapy. (2) Obesity Current Visit: Yes Status: Acute Plan to address problem: Balanced diet, increased physical activity at discharge (3) Dizziness Current Visit: Yes Status: Acute Plan to address problem: CT Head,neuro check, (4) HTN (hypertension) Current Visit: Yes Status: Acute Qualifiers: Hypertension type: essential hypertension Qualified Code(s): I10 - Essential (primary) hypertension Plan to address problem: Monitor bp q shift, continue medical management. (5) HLD (hyperlipidemia) Current Visit: Yes Status: Acute Qualifiers: Hyperlipidemia type: mixed hyperlipidemia Qualified Code(s): E78.2 - Mixed hyperlipidemia Plan to address problem: statin therapy, lipid panel, supportive care. (6) DVT prophylaxis Current Visit: Yes Status: Acute Plan to address problem: SCD to BLE while in bed.
[2019-01-13] MEDS ORDERED: ONDANSETRON 4 MG/2 ML INJ IV PRN (16:29)
[2019-01-13] MEDS ORDERED: ACETAMINOPHEN 325 MG TAB PO PRN (16:29)
[2019-01-13] MEDS ORDERED: ALBUTEROL 2.5 MG/3 ML NEBU IH PRN (16:29)
--- NOTE | 2019-01-13 18:03 | Consultation ---
History of Present Illness Consult date: 01/13/19 Chief complaint: dizzy, head felt sore History of present illness: This is a 68 YO M who presented to the ED after having a headache and his head was sore. Pt with known R frontal ICH, just recently evaluated by neurosurgery, no intervention needed. Pt says bleed thought to be secondary to uncontrolled htn. Says he has not been compliant with his htn meds. Feels better now. Past History Past Medical History: diabetes, hypertension, other (ICH) Past Surgical History: Other (Left Eye, Left Rotator Cuff) Social history: single. denies: smoking, alcohol abuse, prescription drug abuse Family history: diabetes, hypertension Medications and Allergies Allergies Allergy/AdvReac Type Severity Reaction Status Date / Time codeine Allergy Rash Verified 01/13/19 17:31 Home Medications Medication Instructions Recorded Confirmed Last Taken Type Aspirin [Aspirin BABY CHEW TAB] 81 mg PO QDAY #30 tab.chew 11/10/12 01/13/19 07/14/13 13:00 Rx Gabapentin 300 mg PO TID #30 capsule 11/10/12 01/13/19 07/14/13 13:00 Rx Simvastatin [Zocor TAB] 40 mg PO QHS #30 tablet 11/10/12 01/13/19 07/14/13 13:00 Rx amLODIPine 10 mg PO DAILY #30 tablet 11/10/12 01/13/19 01/13/19 Rx 0800 metFORMIN [Glucophage] 1,000 mg PO BID #60 11/10/12 01/13/19 01/13/19 Rx 0800 Tamsulosin [Flomax] 0.4 mg PO QHS 01/13/19 01/13/19 01/12/19 21:00 History Active Meds: Active Medications Acetaminophen (Tylenol) 650 mg PO Q4H PRN PRN Reason: Pain MILD(1-3)/Fever >100.5/JIMÉNEZ Albuterol (Proventil) 2.5 mg IH Q4HRT PRN PRN Reason: Shortness Of Breath Ondansetron HCl (Zofran) 4 mg IV Q8H PRN PRN Reason: Nausea And Vomiting Sodium Chloride (Sodium Chloride Flush Syringe 10 Ml) 10 ml IV BID LYN Sodium Chloride (Sodium Chloride Flush Syringe 10 Ml) 10 ml IV PRN PRN PRN Reason: LINE FLUSH Review of Systems Neurological: vertigo Physical Examination - Vital Signs Vital Signs: Vital Signs Temp Pulse Resp BP Pulse Ox 97.9 F 83 20 129/78 96 01/13/19 12:46 01/13/19 12:46 01/13/19 12:46 01/13/19 12:46 01/13/19 12:46 - Constitutional General appearance: comfortable - EENT EENT: Present: mucous membranes moist - Respiratory Respiratory: Present: lungs clear - Cardiovascular Cardiovascular: Present: regular rate Extremities: Present: no peripheral edema bilatateraly - Gastrointestinal Gastrointestinal: Present: normoactive bowel sounds - Integumentary Integumentary: Present: normal - Neurologic Cranial nerve examination: PERRL, EOMI, face symmetric, tongue midline Speech examination: intact Motor examination - right side: 5/5: biceps, triceps, wrist flexion, wrist extension, dress designer, hip flexors, knee extensors, dorsiflexion, toe extension (EHL), plantarflexion Motor examination - left side: 5/5: biceps, triceps, wrist flexion, wrist extension, dress designer, hip flexors, knee extensors, dorsiflexion, toe extension (EHL), plantarflexion Detailed sensory examination: intact Reflex and gait examination: intact Reflexes: 0: ankle, bicep, knee, tricep Results - Laboratory Findings CBC and BMP: 01/13/19 13:17 01/13/19 13:17 Abnormal Lab Findings: Abnormal Labs 01/13/19 13:17 RBC 5.94 H MCV 65 L MCH 20 L MCHC 31 L RDW 16.3 H Steele % (Auto) 12.2 H Eos % (Auto) 4.6 H Steele # 0.9 H - Diagnostic Findings Additional findings: CT head evolving right frontal hemorrhage Assessment and Plan This is a 68 YO M with right frontal parenchymal hemorrhage, presumed secodnary to hypertension. Intermittant Vertigo Recommend: MRI Brain w/wo, rule out underlying lesion MRA head EEG, pt would be at risk for seizure, could also explain vertigo but could also be from his HBP. Add AED if + discharges Continue care for all medical issues as you are doing POC discussed at length with patient at the bedside
--- NOTE | 2019-01-14 11:43 | Progress Note ---
Assessment and Plan Assessment and plan: Nontraumatic IC hemorrhage -CT head showed evolving RT frontal parenchymal hemorrhage -MRI brain, MRA head/neck pending -Neurology following Hypertension -Stable -We will resume home amlodipine DM2 with neuropathy -Will place patient on SSI -We'll continue home gabapentin HLD -resume statin Dizziness -Probably secondary to the hemorrhage -PT consulted DVT prophylaxis with SCD Disposition: I got a call from [facility] regarding the information about the size of intracranial hemorrhage which was not reported on the CT reading. I called the radiology department in order to get this info, but I was told that no radiologist is present on site and no phone number could be given to me by [facility] radiology assistant front end manager staff. Meanwhile, we will follow up on the pending MRI/MRA History Interval history: Patient continues to complain of dizziness. He denies headaches, blurry vision or nausea. Hospitalist Physical - Constitutional Vitals: Temp Pulse Resp BP Pulse Ox 98.1 F 89 18 106/66 99 01/14/19 07:41 01/14/19 07:41 01/14/19 07:41 01/14/19 07:41 01/14/19 07:41 General appearance: Present: no acute distress, obese - EENT Eyes: Present: PERRL, EOM intact ENT: hearing intact, clear oral mucosa - Neck Neck: Present: supple - Respiratory Respiratory effort: normal Respiratory: bilateral: CTA - Cardiovascular Rhythm: regular Heart Sounds: Present: S1 & S2 - Extremities Extremities: No edema - Abdominal General gastrointestinal: soft, non-tender, normal bowel sounds - Integumentary Integumentary: Present: warm, dry - Psychiatric Psychiatric: appropriate mood/affect - Neurologic Neurologic: CNII-XII intact Results - Labs CBC & Chem 7: 01/13/19 13:17 01/13/19 13:17 Labs: Laboratory Last Values WBC 7.5 K/mm3 (4.5-11.0) 01/13/19 13:17 RBC 5.94 M/mm3 (3.65-5.03) H 01/13/19 13:17 Hgb 11.9 gm/dl (11.8-15.2) 01/13/19 13:17 Hct 38.5 % (35.5-45.6) 01/13/19 13:17 MCV 65 fl (84-94) L 01/13/19 13:17 MCH 20 pg (28-32) L 01/13/19 13:17 MCHC 31 % (32-34) L 01/13/19 13:17 RDW 16.3 % (13.2-15.2) H 01/13/19 13:17 Plt Count 290 K/mm3 (140-440) 01/13/19 13:17 Lymph % (Auto) 28.6 % (13.4-35.0) 01/13/19 13:17 [place] % (Auto) 12.2 % (0.0-7.3) H 01/13/19 13:17 Eos % (Auto) 4.6 % (0.0-4.3) H 01/13/19 13:17 Baso % (Auto) 0.6 % (0.0-1.8) 01/13/19 13:17 Lymph # 2.1 K/mm3 (1.2-5.4) 01/13/19 13:17 [place] # 0.9 K/mm3 (0.0-0.8) H 01/13/19 13:17 Eos # 0.3 K/mm3 (0.0-0.4) 01/13/19 13:17 Baso # 0.0 K/mm3 (0.0-0.1) 01/13/19 13:17 Seg Neutrophils % 54.0 % (40.0-70.0) 01/13/19 13:17 Seg Neutrophils # 4.0 K/mm3 (1.8-7.7) 01/13/19 13:17 PT 13.8 Sec. (12.2-14.9) 01/13/19 13:17 INR 1.07 (0.87-1.13) 01/13/19 13:17 APTT 28.1 Sec. (24.2-36.6) 01/13/19 13:17 Sodium 139 mmol/L (137-145) 01/13/19 13:17 Potassium 4.0 mmol/L (3.6-5.0) 01/13/19 13:17 Chloride 99.5 mmol/L (98-107) 01/13/19 13:17 Carbon Dioxide 26 mmol/L (22-30) 01/13/19 13:17 Anion Gap 18 mmol/L 01/13/19 13:17 BUN 15 mg/dL (9-20) 01/13/19 13:17 Creatinine 1.1 mg/dL (0.8-1.5) 01/13/19 13:17 Estimated GFR > 60 ml/min 01/13/19 13:17 BUN/Creatinine Ratio 14 % 01/13/19 13:17 Glucose 92 mg/dL (75-100) 01/13/19 13:17 Calcium 9.5 mg/dL (8.4-10.2) 01/13/19 13:17 Total Bilirubin 0.30 mg/dL (0.1-1.2) 01/13/19 13:17 AST 15 units/L (5-40) 01/13/19 13:17 ALT 12 units/L (7-56) 01/13/19 13:17 Alkaline Phosphatase 69 units/L (35-129) 01/13/19 13:17 Total Protein 7.8 g/dL (6.3-8.2) 01/13/19 13:17 Albumin 4.1 g/dL (3.9-5) 01/13/19 13:17 Albumin/Globulin Ratio 1.1 % 01/13/19 13:17 Plasma/Serum Alcohol < 0.01 % (0-0.07) 01/13/19 13:17 Active Medications - Current Medications Current Medications: Generic Name Dose Route Start Last Admin Trade Name Freq PRN Reason Stop Dose Admin Acetaminophen 650 mg 01/13/19 16:29 Tylenol PO Q4H PRN Pain MILD(1-3)/Fever >100.5/JIMÉNEZ Albuterol 2.5 mg 01/13/19 16:29 Proventil IH Q4HRT PRN Shortness Of Breath Ondansetron HCl 4 mg 01/13/19 16:29 Zofran IV Q8H PRN Nausea And Vomiting Sodium Chloride 10 ml 01/13/19 22:00 01/14/19 09:40 Sodium Chloride Flush Syringe 10 Ml IV 10 ml BID LYN Administration Sodium Chloride 10 ml 01/13/19 16:29 Sodium Chloride Flush Syringe 10 Ml IV PRN PRN LINE FLUSH Nutrition/Malnutrition Assess - Dietary Evaluation Nutrition/Malnutrition Findings: Nutrition Notes Start: 01/14/19 10:23 Freq: Status: Active Protocol: Document 01/14/19 10:24 CT (Rec: 01/14/19 11:28 CT [id number]) Co-Sign 01/14/19 10:24 LM Nutrition Notes 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 Pt stated no issues chewing/ swallowing and no complaint of N/V. Burn Absent Trauma Absent GI Symptoms None Food Allergy No Current % PO Good (75-100%) Minimum of two criteria No physical signs of malnutrition #1 Nutrition Diagnosis No nutrition diagnosis at this time Nutrition Intervention Change Diet Order: Continue Current Revisit per MD consult or patient Sign Off request:
[2019-01-14] MEDS ORDERED: DEXTROSE 50% IN WATER (25GM) 50 ML SYRINGE IV PRN (11:46)
[2019-01-14] MEDS ORDERED: FLU VACC QUAD 2019-20 (3 YR UP)/PF 60 MCG/0.5 ML SYRINGE IM ONE (12:00)
--- NOTE | 2019-01-14 12:45 | Magnetic Resonance Report ---
MRI BRAIN 01/14/2019 INDICATION / CLINICAL INFORMATION: r frontal bleed, r/o underlying lesion. TECHNIQUE: Multiplanar, multisequence MR images of the brain were obtained. COMPARISON: CT brain 01/13/2019 FINDINGS: BRAIN / INTRACRANIAL CONTENTS: Unenhanced and enhanced MR images of the brain were obtained and roselia red to the CT scan from 01/13/[address] scan from 01/05/2019. The MRI demonstrates evidence of the previously seen hemorrhagic lesion located in the inferior aspec t of the right frontal lobe. This lesion shows increased T1 weighted signal consistent with the prese nce of methemoglobin in an area that is approximately 2.4 cm in length. There is some central portion of possible residual deoxy hemoglobin. On the postcontrast images, there is no evidence of superimpo sed contrast enhancement. There is no evidence to suggest an underlying lesion. Extensive chronic white matter T2 weighted hyperintensity is present throughout the cerebral hemisphe kavon white matter, consistent with extensive chronic small vessel ischemic change. There is evidence of focal chronic infarct in the right frontal lobe, also associated with some chron ic hemosiderin deposition. A smaller left frontal cortical chronic infarct with hemosiderin depositio n is also noted. Post contrast images demonstrate no abnormal contrast enhancement. EXTRACRANIAL: Unremarkable CRANIOCERVICAL JUNCTION: No significant abnormality. VASCULAR FLOW-VOIDS: No significant abnormality. IMPRESSION: 1. Subacute right subfrontal parenchymal hematoma, with no evidence of underlying lesion. 2. Pronounced diffuse chronic white matter signal change. 3. 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 Signer Name: Robinson Lozada MD Signed: 01/14/2019 12:40 PM Workstation Name: [id number]
--- NOTE | 2019-01-14 12:53 | Magnetic Resonance Report ---
MRA HEAD 01/14/2019 INDICATION / CLINICAL INFORMATION: r frontal bleed. Dizziness and syncope TECHNIQUE: Routine MRA of the head is performed. 3-D/MIP reformats postprocessed. COMPARISON: None available. FINDINGS: MRA HEAD: Intracranial internal carotid arteries: No significant abnormality. Anterior cerebral arteries: No significant abnormality. Middle cerebral arteries: No significant abnormality. Intracranial vertebral arteries: No significant abnormality. Basilar artery: No significant abnormality. Posterior cerebral arteries: No significant abnormality. IMPRESSION: No significant abnormality. Signer Name: Robinson Lozada MD Signed: 01/14/2019 12:48 PM Workstation Name: [id number]
[2019-01-14] MEDS: GABAPENTIN 300 MG CAP PO SCH ×2 (13:58→22:27)
[2019-01-14] MEDS ORDERED: amLODIPine 10 MG TAB PO ONE (15:09)
[2019-01-14] MEDS: INSULIN LISPRO 100 UNIT/ML SUB-Q SCH ×2 (16:37→23:20)
[2019-01-14] MEDS ORDERED: NON-FORMULARY EACH (Simvastatin 40 MG) PO SCH (22:00)
[2019-01-14] MEDS: PRAVASTATIN 80 MG TAB PO SCH (22:27)
[2019-01-14] MEDS: TAMSULOSIN 0.4 MG CAP PO SCH (22:27)
[2019-01-15] MEDS: INSULIN LISPRO 100 UNIT/ML SUB-Q SCH ×4 (09:21→21:56)
[2019-01-15] MEDS: amLODIPine 10 MG TAB PO SCH (09:26)
[2019-01-15] MEDS: GABAPENTIN 300 MG CAP PO SCH ×3 (09:26→21:58)
[2019-01-15] MEDS ORDERED: FLU VACC QUAD 2019-20 (3 YR UP)/PF 60 MCG/0.5 ML SYRINGE IM ONE (12:00)
--- NOTE | 2019-01-15 12:47 | Progress Note ---
Assessment and Plan Assessment and plan: Nontraumatic subacute IC hematoma -CT head showed evolving RT frontal parenchymal hemorrhage -MRI brain showed subacute right subfrontal parenchymal hematoma -MRA head negative for significant stenosis -Neurology following -Contacted the neurosurgeon at [facility] and he recommended no transfer. The hematoma likely a sequelae of the previous intracranial hemorrhage Hypertension -Controlled on amlodipine DM2 with neuropathy -BG stable on SSI -continue gabapentin HLD -Continue statin Dizziness -PT recommended inpatient rehabilitation Medication noncompliance Patient counseled DVT prophylaxis with SCD Disposition: pending rehab placement History Interval history: Patient has no new complaints except dizziness Hospitalist Physical - Constitutional Vitals: Temp Pulse Resp BP Pulse Ox 98.3 F 57 L 20 127/71 96 01/15/19 07:36 01/15/19 09:26 01/15/19 07:36 01/15/19 09:26 01/15/19 07:36 General appearance: Present: no acute distress, obese - EENT Eyes: Present: PERRL, EOM intact ENT: hearing intact, clear oral mucosa - Neck Neck: Present: supple - Respiratory Respiratory effort: normal Respiratory: bilateral: CTA - Cardiovascular Rhythm: regular Heart Sounds: Present: S1 & S2 - Extremities Extremities: No edema - Abdominal General gastrointestinal: soft, non-tender, normal bowel sounds - Integumentary Integumentary: Present: warm, dry - Psychiatric Psychiatric: appropriate mood/affect - Neurologic Neurologic: CNII-XII intact Results - Labs CBC & Chem 7: 01/13/19 13:17 01/13/19 13:17 Labs: Laboratory Last Values WBC 7.5 K/mm3 (4.5-11.0) 01/13/19 13:17 RBC 5.94 M/mm3 (3.65-5.03) H 01/13/19 13:17 Hgb 11.9 gm/dl (11.8-15.2) 01/13/19 13:17 Hct 38.5 % (35.5-45.6) 01/13/19 13:17 MCV 65 fl (84-94) L 01/13/19 13:17 MCH 20 pg (28-32) L 01/13/19 13:17 MCHC 31 % (32-34) L 01/13/19 13:17 RDW 16.3 % (13.2-15.2) H 01/13/19 13:17 Plt Count 290 K/mm3 (140-440) 01/13/19 13:17 Lymph % (Auto) 28.6 % (13.4-35.0) 01/13/19 13:17 [place] % (Auto) 12.2 % (0.0-7.3) H 01/13/19 13:17 Eos % (Auto) 4.6 % (0.0-4.3) H 01/13/19 13:17 Baso % (Auto) 0.6 % (0.0-1.8) 01/13/19 13:17 Lymph # 2.1 K/mm3 (1.2-5.4) 01/13/19 13:17 [place] # 0.9 K/mm3 (0.0-0.8) H 01/13/19 13:17 Eos # 0.3 K/mm3 (0.0-0.4) 01/13/19 13:17 Baso # 0.0 K/mm3 (0.0-0.1) 01/13/19 13:17 Seg Neutrophils % 54.0 % (40.0-70.0) 01/13/19 13:17 Seg Neutrophils # 4.0 K/mm3 (1.8-7.7) 01/13/19 13:17 PT 13.8 Sec. (12.2-14.9) 01/13/19 13:17 INR 1.07 (0.87-1.13) 01/13/19 13:17 APTT 28.1 Sec. (24.2-36.6) 01/13/19 13:17 Sodium 139 mmol/L (137-145) 01/13/19 13:17 Potassium 4.0 mmol/L (3.6-5.0) 01/13/19 13:17 Chloride 99.5 mmol/L (98-107) 01/13/19 13:17 Carbon Dioxide 26 mmol/L (22-30) 01/13/19 13:17 Anion Gap 18 mmol/L 01/13/19 13:17 BUN 15 mg/dL (9-20) 01/13/19 13:17 Creatinine 1.1 mg/dL (0.8-1.5) 01/13/19 13:17 Estimated GFR > 60 ml/min 01/13/19 13:17 BUN/Creatinine Ratio 14 % 01/13/19 13:17 Glucose 92 mg/dL (75-100) 01/13/19 13:17 POC Glucose 97 (70-105) 01/15/19 11:45 Calcium 9.5 mg/dL (8.4-10.2) 01/13/19 13:17 Total Bilirubin 0.30 mg/dL (0.1-1.2) 01/13/19 13:17 AST 15 units/L (5-40) 01/13/19 13:17 ALT 12 units/L (7-56) 01/13/19 13:17 Alkaline Phosphatase 69 units/L (35-129) 01/13/19 13:17 Total Protein 7.8 g/dL (6.3-8.2) 01/13/19 13:17 Albumin 4.1 g/dL (3.9-5) 01/13/19 13:17 Albumin/Globulin Ratio 1.1 % 01/13/19 13:17 Plasma/Serum Alcohol < 0.01 % (0-0.07) 01/13/19 13:17 Active Medications - Current Medications Current Medications: Generic Name Dose Route Start Last Admin Trade Name Freq PRN Reason Stop Dose Admin Acetaminophen 650 mg 01/13/19 16:29 Tylenol PO Q4H PRN Pain MILD(1-3)/Fever >100.5/JIMÉNEZ Albuterol 2.5 mg 01/13/19 16:29 Proventil IH Q4HRT PRN Shortness Of Breath Amlodipine Besylate 10 mg 01/15/19 10:00 01/15/19 09:26 Amlodipine PO 10 mg DAILY LYN Administration Dextrose 50 ml 01/14/19 11:46 D50w (25gm) Syringe IV Q30MIN PRN Hypoglycemia Protocol Gabapentin 300 mg 01/14/19 14:00 01/15/19 09:26 Gabapentin PO 300 mg TID LYN Administration Insulin Human Lispro 0 unit 01/14/19 16:30 01/15/19 09:21 Humalog SUB-Q 4 unit ACHS LYN Administration Protocol Ondansetron HCl 4 mg 01/13/19 16:29 Zofran IV Q8H PRN Nausea And Vomiting Pravastatin Sodium 80 mg 01/14/19 22:00 01/14/19 22:27 Pravachol PO 80 mg QHS LYN Administration Sodium Chloride 10 ml 01/13/19 22:00 01/14/19 22:51 Sodium Chloride Flush Syringe 10 Ml IV 10 ml BID LYN Administration Sodium Chloride 10 ml 01/13/19 16:29 Sodium Chloride Flush Syringe 10 Ml IV PRN PRN LINE FLUSH Tamsulosin HCl 0.4 mg 01/14/19 22:00 01/14/19 22:27 Flomax PO 0.4 mg QHS LYN Administration Nutrition/Malnutrition Assess - Dietary Evaluation Nutrition/Malnutrition Findings: Nutrition Notes Start: 01/14/19 10:23 Freq: Status: Active Protocol: Document 01/14/19 10:24 CT (Rec: 01/14/19 11:28 CT [id number]) Co-Sign 01/14/19 10:24 LM Nutrition Notes 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 Pt stated no issues chewing/ swallowing and no complaint of N/V. Burn Absent Trauma Absent GI Symptoms None Food Allergy No Current % PO Good (75-100%) Minimum of two criteria No physical signs of malnutrition #1 Nutrition Diagnosis No nutrition diagnosis at this time Nutrition Intervention Change Diet Order: Continue Current Revisit per MD consult or patient Sign Off request:
[2019-01-15] MEDS: TAMSULOSIN 0.4 MG CAP PO SCH (21:58)
[2019-01-15] MEDS: PRAVASTATIN 80 MG TAB PO SCH (21:58)
--- NOTE | 2019-01-16 11:44 | Progress Note ---
Assessment and Plan Assessment and plan: Nontraumatic subacute IC hematoma -CT head showed evolving RT frontal parenchymal hemorrhage -MRI brain showed subacute right subfrontal parenchymal hematoma -MRA head negative for significant stenosis -Neurology consulted -Contacted the neurosurgeon at [facility] and he recommended no transfer. The hematoma likely a sequelae of the previous intracranial hemorrhage Hypertension -Controlled on amlodipine DM2 with neuropathy -BG stable on SSI -continue gabapentin HLD -Continue statin Dizziness/Deconditioning -PT recommended JOHANNA Medication noncompliance Patient counseled DVT prophylaxis with SCD Disposition: pending rehab placement History Interval history: Patient has no new complaints. His dizziness has slightly improved Hospitalist Physical - Constitutional Vitals: Temp Pulse Resp BP Pulse Ox 97.9 F 77 18 143/82 98 01/16/19 08:46 01/16/19 08:46 01/16/19 08:46 01/16/19 08:46 01/16/19 08:46 General appearance: Present: no acute distress, obese - EENT Eyes: Present: PERRL, EOM intact ENT: hearing intact, clear oral mucosa - Neck Neck: Present: supple - Respiratory Respiratory effort: normal Respiratory: bilateral: CTA - Cardiovascular Rhythm: regular Heart Sounds: Present: S1 & S2 - Extremities Extremities: No edema - Abdominal General gastrointestinal: soft, non-tender, normal bowel sounds - Integumentary Integumentary: Present: warm, dry - Psychiatric Psychiatric: appropriate mood/affect - Neurologic Neurologic: CNII-XII intact Results - Labs CBC & Chem 7: 01/13/19 13:17 01/13/19 13:17 Labs: Laboratory Last Values WBC 7.5 K/mm3 (4.5-11.0) 01/13/19 13:17 RBC 5.94 M/mm3 (3.65-5.03) H 01/13/19 13:17 Hgb 11.9 gm/dl (11.8-15.2) 01/13/19 13:17 Hct 38.5 % (35.5-45.6) 01/13/19 13:17 MCV 65 fl (84-94) L 01/13/19 13:17 MCH 20 pg (28-32) L 01/13/19 13:17 MCHC 31 % (32-34) L 01/13/19 13:17 RDW 16.3 % (13.2-15.2) H 01/13/19 13:17 Plt Count 290 K/mm3 (140-440) 01/13/19 13:17 Lymph % (Auto) 28.6 % (13.4-35.0) 01/13/19 13:17 [place] % (Auto) 12.2 % (0.0-7.3) H 01/13/19 13:17 Eos % (Auto) 4.6 % (0.0-4.3) H 01/13/19 13:17 Baso % (Auto) 0.6 % (0.0-1.8) 01/13/19 13:17 Lymph # 2.1 K/mm3 (1.2-5.4) 01/13/19 13:17 [place] # 0.9 K/mm3 (0.0-0.8) H 01/13/19 13:17 Eos # 0.3 K/mm3 (0.0-0.4) 01/13/19 13:17 Baso # 0.0 K/mm3 (0.0-0.1) 01/13/19 13:17 Seg Neutrophils % 54.0 % (40.0-70.0) 01/13/19 13:17 Seg Neutrophils # 4.0 K/mm3 (1.8-7.7) 01/13/19 13:17 PT 13.8 Sec. (12.2-14.9) 01/13/19 13:17 INR 1.07 (0.87-1.13) 01/13/19 13:17 APTT 28.1 Sec. (24.2-36.6) 01/13/19 13:17 Sodium 139 mmol/L (137-145) 01/13/19 13:17 Potassium 4.0 mmol/L (3.6-5.0) 01/13/19 13:17 Chloride 99.5 mmol/L (98-107) 01/13/19 13:17 Carbon Dioxide 26 mmol/L (22-30) 01/13/19 13:17 Anion Gap 18 mmol/L 01/13/19 13:17 BUN 15 mg/dL (9-20) 01/13/19 13:17 Creatinine 1.1 mg/dL (0.8-1.5) 01/13/19 13:17 Estimated GFR > 60 ml/min 01/13/19 13:17 BUN/Creatinine Ratio 14 % 01/13/19 13:17 Glucose 92 mg/dL (75-100) 01/13/19 13:17 POC Glucose 106 (70-105) H 01/16/19 07:52 Calcium 9.5 mg/dL (8.4-10.2) 01/13/19 13:17 Total Bilirubin 0.30 mg/dL (0.1-1.2) 01/13/19 13:17 AST 15 units/L (5-40) 01/13/19 13:17 ALT 12 units/L (7-56) 01/13/19 13:17 Alkaline Phosphatase 69 units/L (35-129) 01/13/19 13:17 Total Protein 7.8 g/dL (6.3-8.2) 01/13/19 13:17 Albumin 4.1 g/dL (3.9-5) 01/13/19 13:17 Albumin/Globulin Ratio 1.1 % 01/13/19 13:17 Plasma/Serum Alcohol < 0.01 % (0-0.07) 01/13/19 13:17 Active Medications - Current Medications Current Medications: Generic Name Dose Route Start Last Admin Trade Name Freq PRN Reason Stop Dose Admin Acetaminophen 650 mg 01/13/19 16:29 01/15/19 15:04 Tylenol PO 650 mg Q4H PRN Administration Pain MILD(1-3)/Fever >100.5/JIMÉNEZ Albuterol 2.5 mg 01/13/19 16:29 Proventil IH Q4HRT PRN Shortness Of Breath Amlodipine Besylate 10 mg 01/15/19 10:00 01/15/19 09:26 Amlodipine PO 10 mg DAILY LYN Administration Dextrose 50 ml 01/14/19 11:46 D50w (25gm) Syringe IV Q30MIN PRN Hypoglycemia Protocol Gabapentin 300 mg 01/14/19 14:00 01/15/19 21:58 Gabapentin PO 300 mg TID LYN Administration Insulin Human Lispro 0 unit 01/14/19 16:30 01/15/19 21:56 Humalog SUB-Q Not Given ACHS LYN Protocol Ondansetron HCl 4 mg 01/13/19 16:29 Zofran IV Q8H PRN Nausea And Vomiting Pravastatin Sodium 80 mg 01/14/19 22:00 01/15/19 21:58 Pravachol PO 80 mg QHS LYN Administration Sodium Chloride 10 ml 01/13/19 22:00 01/15/19 21:59 Sodium Chloride Flush Syringe 10 Ml IV 10 ml BID LYN Administration Sodium Chloride 10 ml 01/13/19 16:29 Sodium Chloride Flush Syringe 10 Ml IV PRN PRN LINE FLUSH Tamsulosin HCl 0.4 mg 01/14/19 22:00 01/15/19 21:58 Flomax PO 0.4 mg QHS LYN Administration Nutrition/Malnutrition Assess - Dietary Evaluation Nutrition/Malnutrition Findings: Nutrition Notes Start: 01/14/19 10:23 Freq: Status: Active Protocol: Document 01/14/19 10:24 CT (Rec: 01/14/19 11:28 CT [id number]) Co-Sign 01/14/19 10:24 LM Nutrition Notes 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 Pt stated no issues chewing/ swallowing and no complaint of N/V. Burn Absent Trauma Absent GI Symptoms None Food Allergy No Current % PO Good (75-100%) Minimum of two criteria No physical signs of malnutrition #1 Nutrition Diagnosis No nutrition diagnosis at this time Nutrition Intervention Change Diet Order: Continue Current Revisit per MD consult or patient Sign Off request:
[2019-01-16] MEDS: GABAPENTIN 300 MG CAP PO SCH (20:24)
[2019-01-16] MEDS: PRAVASTATIN 80 MG TAB PO SCH (21:10)
[2019-01-16] MEDS: TAMSULOSIN 0.4 MG CAP PO SCH (21:11)
[2019-01-16] MEDS: INSULIN LISPRO 100 UNIT/ML SUB-Q SCH (22:41)
[2019-01-17] MEDS: INSULIN LISPRO 100 UNIT/ML SUB-Q SCH ×6 (08:39→22:07)
[2019-01-17] MEDS: amLODIPine 10 MG TAB PO SCH ×3 (09:55→21:37)
[2019-01-17] MEDS: GABAPENTIN 300 MG CAP PO SCH ×4 (09:56→22:07)
[2019-01-17 12:48] LABS: Hematocrit 39.3 % (35.5-45.6); Hemoglobin 12.3 gm/dl (11.8-15.2)
--- NOTE | 2019-01-17 16:48 | Progress Note ---
Assessment and Plan Assessment and plan: 68-year-old man who presents to the hospital with dizziness Nontraumatic subacute IC hematoma -CT head showed evolving RT frontal parenchymal hemorrhage -MRI brain showed subacute right subfrontal parenchymal hematoma -MRA head negative for significant stenosis -Neurology consulted -Contacted the neurosurgeon at [facility] and he recommended no transfer. The hematoma likely a sequelae of the previous intracranial hemorrhage Hypertension -Controlled on amlodipine DM2 with neuropathy -BG stable on SSI -continue gabapentin HLD -Continue statin Dizziness/Deconditioning -PT recommended JOHANNA Medication noncompliance Patient counseled DVT prophylaxis with SCD Disposition: pending rehab placement History Interval history: Review of systems Constitutional: No fevers, no malaise, no joint pains CVS: No chest pain, no orthopnea, no pedal edema GI: No abdominal pain, no diarrhea, no vomiting, no constipation Respiratory: , no wheezing, no coughing Hospitalist Physical - Physical exam Narrative exam: General.: Appears well, no distress, nontoxic HEENT: Moist mucous membranes, extraocular muscles intact, no lymphadenopathy Neck: supple Cardiac: S1-S2 heard Lungs: clear to auscultation bilaterally Abdomen: soft , nontender, nondistended, bowel sounds positive Extremities: no edema clubbing or cyanosis Skin: no rash or lesions Neurologic: no gross focal deficits, patient is oriented, but keeps asking the same questions over and over again Psych: calm, and cooperative - Constitutional Vitals: Temp Pulse Resp BP Pulse Ox 97.6 F 79 18 155/71 92 01/17/19 13:49 01/17/19 13:49 01/17/19 13:49 01/17/19 13:49 01/17/19 13:49 General appearance: Present: no acute distress, obese Results - Labs CBC & Chem 7: 01/17/19 12:20 01/13/19 13:17 Labs: Laboratory Last Values WBC 7.5 K/mm3 (4.5-11.0) 01/13/19 13:17 RBC 5.94 M/mm3 (3.65-5.03) H 01/13/19 13:17 Hgb 12.3 gm/dl (11.8-15.2) 01/17/19 12:20 Hct 39.3 % (35.5-45.6) 01/17/19 12:20 MCV 65 fl (84-94) L 01/13/19 13:17 MCH 20 pg (28-32) L 01/13/19 13:17 MCHC 31 % (32-34) L 01/13/19 13:17 RDW 16.3 % (13.2-15.2) H 01/13/19 13:17 Plt Count 290 K/mm3 (140-440) 01/13/19 13:17 Lymph % (Auto) 28.6 % (13.4-35.0) 01/13/19 13:17 Sabine % (Auto) 12.2 % (0.0-7.3) H 01/13/19 13:17 Eos % (Auto) 4.6 % (0.0-4.3) H 01/13/19 13:17 Baso % (Auto) 0.6 % (0.0-1.8) 01/13/19 13:17 Lymph # 2.1 K/mm3 (1.2-5.4) 01/13/19 13:17 Sabine # 0.9 K/mm3 (0.0-0.8) H 01/13/19 13:17 Eos # 0.3 K/mm3 (0.0-0.4) 01/13/19 13:17 Baso # 0.0 K/mm3 (0.0-0.1) 01/13/19 13:17 Seg Neutrophils % 54.0 % (40.0-70.0) 01/13/19 13:17 Seg Neutrophils # 4.0 K/mm3 (1.8-7.7) 01/13/19 13:17 PT 13.8 Sec. (12.2-14.9) 01/13/19 13:17 INR 1.07 (0.87-1.13) 01/13/19 13:17 APTT 28.1 Sec. (24.2-36.6) 01/13/19 13:17 Sodium 139 mmol/L (137-145) 01/13/19 13:17 Potassium 4.0 mmol/L (3.6-5.0) 01/13/19 13:17 Chloride 99.5 mmol/L (98-107) 01/13/19 13:17 Carbon Dioxide 26 mmol/L (22-30) 01/13/19 13:17 Anion Gap 18 mmol/L 01/13/19 13:17 BUN 15 mg/dL (9-20) 01/13/19 13:17 Creatinine 1.1 mg/dL (0.8-1.5) 01/13/19 13:17 Estimated GFR > 60 ml/min 01/13/19 13:17 BUN/Creatinine Ratio 14 % 01/13/19 13:17 Glucose 92 mg/dL (75-100) 01/13/19 13:17 POC Glucose 95 (70-105) 01/17/19 16:31 Calcium 9.5 mg/dL (8.4-10.2) 01/13/19 13:17 Total Bilirubin 0.30 mg/dL (0.1-1.2) 01/13/19 13:17 AST 15 units/L (5-40) 01/13/19 13:17 ALT 12 units/L (7-56) 01/13/19 13:17 Alkaline Phosphatase 69 units/L (35-129) 01/13/19 13:17 Total Protein 7.8 g/dL (6.3-8.2) 01/13/19 13:17 Albumin 4.1 g/dL (3.9-5) 01/13/19 13:17 Albumin/Globulin Ratio 1.1 % 01/13/19 13:17 Plasma/Serum Alcohol < 0.01 % (0-0.07) 01/13/19 13:17 Active Medications - Current Medications Current Medications: Generic Name Dose Route Start Last Admin Trade Name Freq PRN Reason Stop Dose Admin Acetaminophen 650 mg 01/13/19 16:29 01/15/19 15:04 Tylenol PO 650 mg Q4H PRN Administration Pain MILD(1-3)/Fever >100.5/JIMÉNEZ Albuterol 2.5 mg 01/13/19 16:29 Proventil IH Q4HRT PRN Shortness Of Breath Amlodipine Besylate 10 mg 01/15/19 10:00 01/17/19 09:58 Amlodipine PO 10 mg DAILY LYN Administration Dextrose 50 ml 01/14/19 11:46 D50w (25gm) Syringe IV Q30MIN PRN Hypoglycemia Protocol Gabapentin 300 mg 01/14/19 14:00 01/17/19 16:24 Gabapentin PO 300 mg TID LYN Administration Insulin Human Lispro 0 unit 01/14/19 16:30 01/17/19 16:24 Humalog SUB-Q Not Given ACHS [facility] Protocol Ondansetron HCl 4 mg 01/13/19 16:29 Zofran IV Q8H PRN Nausea And Vomiting Pravastatin Sodium 80 mg 01/14/19 22:00 01/16/19 21:10 Pravachol PO 80 mg QHS LYN Administration Sodium Chloride 10 ml 01/13/19 22:00 01/17/19 09:59 Sodium Chloride Flush Syringe 10 Ml IV 10 ml BID LYN Administration Sodium Chloride 10 ml 01/13/19 16:29 Sodium Chloride Flush Syringe 10 Ml IV PRN PRN LINE FLUSH Tamsulosin HCl 0.4 mg 01/14/19 22:00 01/16/19 21:11 Flomax PO 0.4 mg QHS LYN Administration Nutrition/Malnutrition Assess - Dietary Evaluation Nutrition/Malnutrition Findings: Nutrition Notes Start: 01/14/19 1 0:23 Freq: Status: Active Protocol: Document 01/14/19 10:24 CT (Rec: 01/14/19 11:28 CT [id number]) Co-Sign 01/14/19 10:24 LM Nutrition Notes 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 Pt stated no issues chewing/ swallowing and no complaint of N/V. Burn Absent Trauma Absent GI Symptoms None Food Allergy No Current % PO Good (75-100%) Minimum of two criteria No physical signs of malnutrition #1 Nutrition Diagnosis No nutrition diagnosis at this time Nutrition Intervention Change Diet Order: Continue Current Revisit per MD consult or patient Sign Off request:
[2019-01-17] MEDS: TAMSULOSIN 0.4 MG CAP PO SCH (22:07)
[2019-01-17] MEDS: PRAVASTATIN 80 MG TAB PO SCH (22:07)
[2019-01-18 02:32] VITALS: BP 147/82
[2019-01-18] MEDS: INSULIN LISPRO 100 UNIT/ML SUB-Q SCH ×3 (07:42→16:45)
[2019-01-18] MEDS: GABAPENTIN 300 MG CAP PO SCH ×2 (08:41→13:41)
[2019-01-18] MEDS: amLODIPine 10 MG TAB PO SCH (13:41)
--- NOTE | 2019-01-18 14:39 | Discharge Summary ---
Providers - Providers Date of Admission: 01/14/19 14:45 Attending physician: SARAH ANGELA MD 01/13/19 16:29 Consult to Physician [CONS] Routine Comment: Consulting Provider: LEONOR FU Physician Instructions: Reason For Exam: dizziness s/p ICH 01/13/19 16:31 Physical Therapy Evaluation and Treat [CONS] Routine Comment: Reason For Exam: weakness/dizziness 01/13/19 16:46 Consult to Case Management [CONS] Routine Services Needed at Discharge: Other Notified:: SILVIA Additional Physician Instructions: Send out for Rehab as per patient request Primary care physician: RAYNE VILLAFANA MD Hospitalization Condition: Critical Hospital course: 68-year-old man who presents to the hospital with dizziness Nontraumatic subacute IC hematoma -CT head showed evolving RT frontal parenchymal hemorrhage -MRI brain showed subacute right subfrontal parenchymal hematoma -MRA head negative for significant stenosis -Neurology input appreciated -Contacted the neurosurgeon at [facility] and he recommended no transfer. The hematoma likely a sequelae of the previous intracranial hemorrhage, and should resolve on its own, blood thinners were discontinued which included aspirin Hypertension -Controlled on amlodipine DM2 with neuropathy -BG stable on SSI, discharged on metformin -continue gabapentin HLD -Continue statin Dizziness/Deconditioning -PT recommended JOHANNA Medication noncompliance Patient counseled DVT prophylaxis with SCD Disposition: [id number]AC[facility] Time spent for discharge: 35 minutes Core Measure Documentation - Palliative Care Palliative Care/ Comfort Measures: Not Applicable - Core Measures Any of the following diagnoses?: none Exam - Physical Exam Narrative exam: General.: Appears well, no distress, nontoxic HEENT: Moist mucous membranes, extraocular muscles intact, no lymphadenopathy Neck: supple Cardiac: S1-S2 heard Lungs: clear to auscultation bilaterally Abdomen: soft , nontender, nondistended, bowel sounds positive Extremities: no edema clubbing or cyanosis Skin: no rash or lesions Neurologic: no gross focal deficits, patient is oriented, but keeps asking the same questions over and over again Psych: calm, and cooperative - Constitutional Vitals: Temp Pulse Resp BP Pulse Ox 98.7 F 64 18 147/82 96 01/18/19 02:30 01/18/19 02:30 01/18/19 02:30 01/18/19 02:30 01/18/19 02:30 Plan Follow up with: PRIMARY CAREMD [Primary Care Provider] - 7 Days Prescriptions: metFORMIN XR [Glucophage XR] 500 mg PO QDAY #30 tab
== END 2019-01-18 19:00 | DRG 65 ==
LOC: ED 11:59 → 2B-ACE 16:29 → OBSVTOIN 01-14 14:45
PROVIDERS: ADMIT Internal Medicine; ATTEND Internal Medicine
DX: I62.9 Nontraumatic intracranial hemorrhage, unspecified (principal); I69.354 Hemiplegia and hemiparesis following cerebral infarction affecting left non-dominant side; I10 Essential (primary) hypertension; E78.2 Mixed hyperlipidemia; E11.40 Type 2 diabetes mellitus with diabetic neuropathy, unspecified; E66.9 Obesity, unspecified; Z68.32 Body mass index [BMI] 32.0-32.9, adult; Z79.82 Long term (current) use of aspirin; Z79.84 Long term (current) use of oral hypoglycemic drugs; Z88.5 Allergy status to narcotic agent; Z87.891 Personal history of nicotine dependence; Z82.49 Family history of ischemic heart disease and other diseases of the circulatory system; Z83.3 Family history of diabetes mellitus; Z91.19 Patient's noncompliance with other medical treatment and regimen; Z71.89 Other specified counseling
CPT/HCPCS: 36415; 70450; 70546; 70553; 80053; 80320; 82962; 85014; 85018; 85025; 85610; 85730; 90471; 90686; 94640; G0378; A9270-GY; A9577; G0008; G0480; J1815

== ENCOUNTER 2019-10-03 06:15 | Observation (INO) | payer MEDICARE, OTHER ==
--- NOTE | 2019-09-29 10:40 | Anesthesia Consultation ---
Anesthesia Consult and Med Hx Date of service: 10/03/19 - Airway Anesthetic Teeth Evaluation: Dentures (full upper and lower) ROM Head & Neck: Adequate Mental/Hyoid Distance: Adequate Mallampati Class: Class II Intubation Access Assessment: Probably Good - Pulmonary Exam CTA: Yes - Cardiac Exam Cardiac Exam: RRR - Pre-Operative Health Status ASA Pre-Surgery Classification: ASA3 Proposed Anesthetic Plan: General - Pulmonary Hx Smoking: No Hx Respiratory Symptoms: No Hx Sleep Apnea: Yes (noncompliant with CPAP) - Cardiovascular System Hx Hypertension: Yes Hx Heart Attack/AMI: No Hx Percutaneous Transluminal Coronary Angioplasty (PTCA): No Hx Cardia Arrhythmia: No - Central Nervous System CVA: Yes (multiple; 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 Stopped ASA 2-3 days ago. No other anticoagulants.
[2019-09-29 10:47] LABS: Hematocrit 39.2 % (35.5-45.6); Hemoglobin 12.8 gm/dl (11.8-15.2); Mean Corpuscular HGB Conc 33 % (32-34); Platelet Count 171 K/mm3 (140-440); Red Blood Count 6.22 M/mm3 (3.65-5.03); Red Cell Distribution Width 16.6 % (13.2-15.2)
[2019-09-29 10:49] LABS: Mean Corpuscular Volume 63 fl (84-94)
[2019-09-29 11:05] LABS: Calcium 9.2 mg/dL (8.4-10.2)
[~2019-10-03 06:15] MED LIST: BACTERIOSTATIC SODIUM CHLORIDE 0.9% 30 ML VIAL INFILTRATI ONE; CELECOXIB 200 MG CAP PO NR; GABAPENTIN 300 MG CAP PO NR; GENTAMICIN/NS 80 MG/100 ML 100 ML IV SCH; LACTATED RINGERS 1,000 ML IV SCH; MAGNESIUM OXIDE 400 MG TAB PO SCH; MIDAZOLAM 2 MG/2 ML INJ IV NR; VANCOMYCIN/NS 1 GM/250 ML 1 GM/250 ML BAG IV SCH
[2019-10-03] MEDS ORDERED: CELECOXIB 200 MG CAP PO SCH (06:17)
[2019-10-03] MEDS ORDERED: VANCOMYCIN/NS 1 GM/250 ML 1 GM/250 ML BAG IV ONE (07:00)
[2019-10-03] MEDS ORDERED: HYDROmorphone 1 MG/1 ML INJ IV PRN (07:11)
[2019-10-03] MEDS ORDERED: ONDANSETRON 4 MG/2 ML INJ IV PRN ×2 (07:11→11:00)
--- NOTE | 2019-10-03 07:11 | Anesthesia Day of Surgery ---
Anesthesia Day of Surgery - Day of Surgery Patient Examined: Yes Patient H&P Reviewed: Yes Patient is NPO: Yes
[2019-10-03] MEDS ORDERED: HYDROmorphone 1 MG/1 ML INJ ONE (07:17)
[2019-10-03] MEDS ORDERED: LIDOCAINE MPF (2%) 20 MG/1 ML VIAL 5 ML ONE (07:17)
[2019-10-03] MEDS ORDERED: propofoL 200 MG/20 ML VIAL IV ONE (07:17)
[2019-10-03] MEDS ORDERED: BUPIVACAINE/PF (0.5%) 5 MG/1 ML 30 ML VIAL INFILTRATI ONE ×2 (07:21→08:19)
[2019-10-03] MEDS ORDERED: GENTAMICIN 40 MG/ML VIAL 2 ML ONE (07:21)
[2019-10-03] MEDS ORDERED: NEOMY 40 MG/POLYMYXIN B 200,000 UNITS/ML (GU) AMPULE IR ONE ×2 (07:22→08:19)
[2019-10-03] MEDS ORDERED: SODIUM CHLORIDE 0.9% 500 ML 500 ML ONE (07:22)
[2019-10-03] MEDS ORDERED: rifAMPin 600 MG VIAL ONE (07:22)
[2019-10-03] MEDS ORDERED: PHENYLEPHRINE/NS 1,000 MCG/10 ML SYRINGE (OR USE) IV ONE (08:15)
[2019-10-03] MEDS ORDERED: SODIUM CHLORIDE 0.9% 500 ML IVPB IRRIGATION ONE (08:17)
[2019-10-03] MEDS ORDERED: GENTAMICIN 40 MG/ML VIAL 2 ML IV ONE (08:18)
[2019-10-03] MEDS ORDERED: rifAMPin 600 MG VIAL IV ONE (08:18)
[2019-10-03] MEDS ORDERED: ePHEDrine SULFATE 50 MG/1 ML INJ ONE (08:39)
[2019-10-03] MEDS ORDERED: ONDANSETRON 4 MG/2 ML INJ ONE (09:32)
--- NOTE | 2019-10-03 09:40 | Short Stay Summary ---
Short Stay Documentation Date of service: 10/03/19 - History H&P: obtained from office - Allergies and Medications Current Medications: Allergies codeine Allergy (Verified 09/28/19 11:12) Vomiting Home Medications Medication Instructions Recorded Confirmed Last Taken Type Gabapentin 300 mg PO TID #30 capsule 11/10/12 10/03/19 1 Month Ago Rx ~09/02/19 Simvastatin [Zocor TAB] 40 mg PO QHS #30 tablet 11/10/12 09/28/19 10/01/19 Rx Tamsulosin [Flomax] 0.4 mg PO QHS 01/13/19 10/03/19 3 Days Ago History ~09/30/19 metFORMIN XR [Glucophage XR] 500 mg PO QDAY #30 tab 01/18/19 09/28/19 10/01/19 Rx Aspirin 325 mg PO QDAY 09/28/19 10/03/19 1 Week Ago History ~09/26/19 Lisinopril/Hydrochlorothiazide 1 each PO DAILY 09/29/19 09/29/19 10/03/19 04:00 History [Zestoretic 10-12.5 mg Tablet] donepeziL [Aricept] 5 mg PO QHS 09/29/19 09/29/19 10/01/19 History Active Medications Celecoxib (Celebrex) 200 mg PO PREOP LYN Stop: 10/03/19 23:59 Last Admin: 10/03/19 06:35 Dose: 200 mg Documented by: Gabapentin (Gabapentin) 600 mg PO PREOP NR Stop: 10/03/19 21:00 Last Admin: 10/03/19 06:35 Dose: 600 mg Documented by: Hydromorphone HCl (Dilaudid) 0.5 mg IV Q10MIN PRN PRN Reason: Pain , Severe (7-10) Stop: 10/03/19 23:00 Lactated Ringer's (Lactated Ringers) 1,000 mls @ 100 mls/hr IV DIRECT LYN Stop: 10/03/19 23:59 Last Admin: 10/03/19 06:45 Dose: 100 mls/hr Documented by: Gentamicin Sulfate/Sodium Chloride (Gentamicin/Ns 80 Mg/100 Ml) 100 mls @ 200 mls/hr IV PREOP LYN Stop: 10/03/19 23:02 Magnesium Oxide (Mag-Ox) 400 mg PO PREOP LYN Stop: 10/03/19 21:00 Last Admin: 10/03/19 06:35 Dose: 400 mg Documented by: Midazolam HCl (Versed) 2 mg IV PREOP NR Stop: 10/03/19 21:00 Ondansetron HCl (Zofran) 4 mg IV ONCE PRN PRN Reason: Nausea And Vomiting Stop: 10/03/19 22:00 - Brief post op/procedure progress note Date of procedure: 10/03/19 Pre-op diagnosis: impotence Post-op diagnosis: same Procedure: ipp (coloplast 24cm + 1 cm RTE) Anesthesia: GETA Surgeon: TIM BELCHER Estimated blood loss: 50-100ml Pathology: list (scrotal skin) Specimen disposition: to lab Condition: stable - Hospital course Hospital course: bactrim,dilaudid,ultram post op info on chart dc [place] wound looks good - Disposition Condition at discharge: Stable Short Stay Discharge Plan Follow up with: CHRISSIE EVANS MD [Primary Care Provider] - 7 Days
--- NOTE | 2019-10-03 09:57 | Operative Report ---
PREOPERATIVE DIAGNOSIS: Organic impotence. POSTOPERATIVE DIAGNOSIS: Organic impotence. PROCEDURE: Insertion of inflatable penile prosthesis (Titan 24 cm device with 1 cm rear tip helicopter pilot), injection of intracorporal pharmacologic agent, scrotoplasty. SURGEON: Emmaunel Goodwin MD COMPONENT ASSEMBLER: Kathleen Pnito. ANESTHESIA: General. ESTIMATED BLOOD LOSS: Minimal. FLUIDS: Crystalloid. COMPLICATIONS: No complications. INDICATIONS: This patient is a 69-year-old gentleman with history of erectile dysfunction, refractory to nonsurgical options. The patient reviewed the video, discussed options. I answered his questions and informed him I cannot make his penis bigger. At that point, he agreed to proceed with surgical intervention. DESCRIPTION OF PROCEDURE: The patient was taken to the operative suite, placed in a supine position. After adequate general anesthesia, he was prepped and draped in a sterile fashion. Pack catheter was placed on the operative field. A 60 mL of dilute Marcaine was injected into the corporal bodies. No plaque could be appreciated. A mild curve to the left approximately 10 degrees. Transscrotal incision was made with Bovie. Sharp dissection was taken down to the corporal bodies. 2-0 Vicryl stay sutures were placed in the corporal bodies. Corporotomies were made bilaterally. Measurements of the corporal bodies revealed a total of 25 cm; therefore, a 24 cm Titan implant with 1 cm rear tip helicopter pilot was prepped for insertion. A 125 mL reservoir was placed in the retropubic space via the right external ring, 120 mL saline was placed as a fill volume. The cylinders were prepped and placed into the corporal bodies with the aid of a Michael needle, adequate seating could be appreciated. A 2-0 Vicryl running stitch was used to close the corporal bodies. The cylinders were connected to the pump of the quick click connection system after the tubing was trimmed. Test inflation revealed adequate erection with slight curve to the left. At that point, the tubing was trimmed for the reservoir and pump and connected again with the quick click connection system. Again, test inflation adequate response. It was partially deflated to leave approximately 70-80% erection. Pump was placed deep in the portion of the scrotum. A 2-0 Vicryl pursestring and running stitch of the dartos layer was used to close the incision. Redundant scrotal skin was excised and sent for routine pathologic evaluation. Skin was closed with 2-0 Vicryl in interrupted fashion. Collodion and Xeroform gauze was placed, mummy wrap as well. Kathleen Pinto was at the bedside as an assistant professor of criminal justice throughout the surgery. The patient was extubated and taken to recovery room. He will be observed overnight and go home on Bactrim and Dilaudid. JOB# [id number] Chin/BURAK GUTHRIE
[2019-10-03] MEDS ORDERED: NALOXONE 0.4 MG/1 ML INJ IV PRN (10:00)
[2019-10-03] MEDS ORDERED: NON-FORMULARY EACH (Lisinopril/Hydrochlorothiazide [Zestoretic 10-12.5 Mg Tablet] 1 EACH) PO SCH (10:00)
[2019-10-03] MEDS ORDERED: DEXTROSE 50% IN WATER (25GM) 50 ML SYRINGE IV PRN (10:00)
[2019-10-03] MEDS ORDERED: SODIUM CHLORIDE 0.45% 1000 ML 1,000 ML IV SCH (10:00)
[2019-10-03] MEDS ORDERED: ACETAMINOPHEN 325 MG TAB PO PRN (10:00)
[2019-10-03] MEDS ORDERED: HYDROmorphone 2 MG/1 ML INJ IV PRN (10:00)
[2019-10-03] MEDS: hydroCHLOROthiazide 12.5 MG CAP PO SCH (10:59)
[2019-10-03] MEDS: LISINOPRIL 10 MG TAB PO SCH (11:01)
--- NOTE | 2019-10-03 11:04 | Post Anesthesia Evaluation ---
- Post Anesthesia Evaluation Patient Participated: Yes Airway Patent: Yes Stable Respiratory Function: Yes Nausea/Vomiting: No Temp > 96.8F: Yes Pain Manageable: Yes Adequeate Hydration: Yes Anesthesia Complications: No Other Comments: T wave inversions w/ PACs noted on monitor. HD stable and asymptomatic. 12-lead EKG ordered. Findings similar to prior EKGs.
[2019-10-03] MEDS: metFORMIN XR 500MG TAB PO SCH (11:36)
[2019-10-03] MEDS: GABAPENTIN 300 MG CAP PO SCH ×2 (13:26→22:30)
[2019-10-03] MEDS: ceFAZolin/NS 1 GM/50 ML 1 GM/50 ML BAG IV SCH ×2 (13:27→22:31)
[2019-10-03] MEDS ORDERED: SODIUM CHLORIDE 0.45% 1000 ML 1,000 ML IV ONE (14:43)
[2019-10-03] MEDS ORDERED: INSULIN REGULAR, HUMAN 100 UNITS/1 ML ONE (16:00)
[2019-10-03] MEDS ORDERED: INSULIN REGULAR, HUMAN 100 UNIT/ML 3ML VIAL ONE (16:41)
[2019-10-03] MEDS: INSULIN REGULAR, HUMAN 100 UNIT/ML 3ML VIAL SUB-Q SCH ×2 (16:41→22:23)
[2019-10-03] MEDS: HYDROmorphone 2 MG TAB PO PRN ×2 (18:23→22:31)
[2019-10-03] MEDS ORDERED: NON-FORMULARY EACH (Simvastatin 40 MG) PO SCH (22:00)
[2019-10-03] MEDS: DONEPEZIL 5 MG TAB PO SCH (22:30)
--- NOTE | 2019-10-04 07:01 | Consultation ---
History of Present Illness - Reason for Consult Consult date: 10/03/19 Medical management Requesting physician: TIM BELCHER - History of Present Illness Status post IPP, postop doing well Past History Past Medical History: diabetes, hyperlipidemia, other (BPH and peripheral neuropathy) Past Surgical History: Other (Status post IPP) Social history: lives with family, full code Family history: hypertension Medications and Allergies Allergies Allergy/AdvReac Type Severity Reaction Status Date / Time codeine Allergy Vomiting Verified 09/28/19 11:12 Home Medications Medication Instructions Recorded Confirmed Last Taken Type Gabapentin 300 mg PO TID #30 capsule 11/10/12 10/03/19 1 Month Ago Rx ~09/02/19 Simvastatin [Zocor TAB] 40 mg PO QHS #30 tablet 11/10/12 09/28/19 10/01/19 Rx Tamsulosin [Flomax] 0.4 mg PO QHS 01/13/19 10/03/19 3 Days Ago History ~09/30/19 metFORMIN XR [Glucophage XR] 500 mg PO QDAY #30 tab 01/18/19 09/28/19 10/01/19 Rx Aspirin 325 mg PO QDAY 09/28/19 10/03/19 1 Week Ago History ~09/26/19 Lisinopril/Hydrochlorothiazide 1 each PO DAILY 09/29/19 09/29/19 10/03/19 04:00 History [Zestoretic 10-12.5 mg Tablet] donepeziL [Aricept] 5 mg PO QHS 09/29/19 09/29/19 10/01/19 History Active Meds: Active Medications Acetaminophen (Tylenol) 650 mg PO Q4H PRN PRN Reason: Pain MILD(1-3)/Fever >100.5/JIMÉNEZ Last Admin: 10/04/19 05:21 Dose: 650 mg Documented by: Dextrose (D50w (25gm) Syringe) 50 ml IV Q30MIN PRN; Protocol PRN Reason: Hypoglycemia Donepezil HCl (Aricept) 5 mg PO QHS [facility] Last Admin: 10/03/19 22:30 Dose: 5 mg Documented by: Gabapentin (Gabapentin) 300 mg PO TID [facility] Last Admin: 10/03/19 22:30 Dose: 300 mg Documented by: Hydrochlorothiazide (Hctz) 12.5 mg PO QDAY [facility] Last Admin: 10/03/19 10:59 Dose: Not Given Documented by: Hydromorphone HCl (Dilaudid) 2 mg PO Q4H PRN PRN Reason: Pain , Severe (7-10) Last Admin: 10/03/19 22:31 Dose: 2 mg Documented by: Hydromorphone HCl (Dilaudid) 2 mg IV Q4H PRN PRN Reason: Pain , Severe (7-10) Sodium Chloride (Nacl 0.45% 1000 Ml) 1,000 mls @ 125 mls/hr IV DIRECT [facility] Last Admin: 10/03/19 16:26 Dose: 125 mls/hr Documented by: Cefazolin Sodium (Ancef/Ns 1 Gm/50 Ml) 1 gm in 50 mls @ 100 mls/hr IV Q8HR [facility]; Protocol Last Admin: 10/03/19 22:31 Dose: 100 mls/hr Documented by: Insulin Human Regular (Humulin R) 0 unit SUB-Q ACHS [facility]; Protocol Last Admin: 10/03/19 16:41 Dose: 2 unit Documented by: Lisinopril (Zestril) 10 mg PO QDAY [facility] Last Admin: 10/03/19 11:01 Dose: Not Given Documented by: Metformin HCl (Glucophage Xr) 500 mg PO QDDIAB [facility] Last Admin: 10/03/19 11:36 Dose: 500 mg Documented by: Naloxone HCl (Naloxone) 0.1 mg IV Q2MIN PRN PRN Reason: Res Rate </= 8 or 02 SAT < 92% Ondansetron HCl (Zofran) 4 mg IV Q8H PRN PRN Reason: Nausea And Vomiting Pravastatin Sodium (Pravachol) 80 mg PO QHS [facility] Sodium Chloride (Sodium Chloride Flush Syringe 10 Ml) 10 ml IV BID [facility] Last Admin: 10/03/19 10:58 Dose: 10 ml Documented by: Sodium Chloride (Sodium Chloride Flush Syringe 10 Ml) 10 ml IV PRN PRN PRN Reason: LINE FLUSH Tamsulosin HCl (Flomax) 0.4 mg PO QHS [facility] Review of Systems All systems: negative Exam - Constitutional Vitals: Temp Pulse Resp BP Pulse Ox 99.2 F 84 20 143/70 98 10/03/19 21:57 10/03/19 21:57 10/04/19 05:21 10/03/19 21:57 10/03/19 21:57 General appearance: Present: no acute distress, well-nourished - EENT Eyes: Present: PERRL ENT: hearing intact, clear oral mucosa - Neck Neck: Present: supple, normal ROM - Respiratory Respiratory effort: normal Respiratory: bilateral: CTA - Cardiovascular Heart rate: 78 Rhythm: regular Heart Sounds: Present: S1 & S2. Absent: rub, click - Extremities Extremities: pulses symmetrical, No edema Peripheral Pulses: within normal limits - Abdominal General gastrointestinal: Present: soft, non-tender, non-distended, normal bowel sounds Male genitourinary: Present: normal - Integumentary Integumentary: Present: clear, warm, dry - Musculoskeletal Musculoskeletal: gait normal, strength equal bilaterally - Psychiatric Psychiatric: appropriate mood/affect, intact judgment & insight - Neurologic Neurologic: CNII-XII intact, moves all extremities - Allied Health Allied health notes reviewed: nursing, case management Results - Labs CBC & Chem 7: 09/29/19 10:20 09/29/19 10:20 Labs: Abnormal lab results 10/03/19 10/03/19 10/03/19 Range/Units 07:06 10:05 12:02 POC Glucose 168 H 151 H 151 H (70-105) Assessment and Plan - Patient Problems (1) Status post surgery Current Visit: Yes Status: Acute Plan to address problem: Patient is doing well postop (2) HLD (hyperlipidemia) Current Visit: No Status: Chronic Qualifiers: Hyperlipidemia type: mixed hyperlipidemia Qualified Code(s): E78.2 - Mixed hyperlipidemia Plan to address problem: Continue statins (3) HTN (hypertension) Current Visit: No Status: Acute Qualifiers: Hypertension type: essential hypertension Qualified Code(s): I10 - Essential (primary) hypertension Plan to address problem: Continue antihypertensives (4) Peripheral neuropathy Current Visit: Yes Status: Chronic Qualifiers: Peripheral neuropathy type: polyneuropathy, other Qualified Code(s): G62.89 - Other specified polyneuropathies Plan to address problem: Continue gabapentin (5) BPH (benign prostatic hyperplasia) Current Visit: Yes Status: Chronic Qualifiers: Lower urinary tract symptom presence: symptoms present Plan to address problem: Continue Flomax (6) DVT prophylaxis Current Visit: No Status: Acute Plan to address problem: SCDs and GI prophylaxis
--- NOTE | 2019-10-04 07:04 | Progress Note ---
Assessment and Plan - Patient Problems (1) Status post surgery Current Visit: Yes Status: Acute Plan to address problem: Patient is doing well postop (2) HLD (hyperlipidemia) Current Visit: No Status: Chronic Qualifiers: Hyperlipidemia type: mixed hyperlipidemia Qualified Code(s): E78.2 - Mixed hyperlipidemia Plan to address problem: Continue statins (3) HTN (hypertension) Current Visit: No Status: Acute Qualifiers: Hypertension type: essential hypertension Qualified Code(s): I10 - Essential (primary) hypertension Plan to address problem: Continue antihypertensives (4) Peripheral neuropathy Current Visit: Yes Status: Chronic Qualifiers: Peripheral neuropathy type: polyneuropathy, other Qualified Code(s): G62.89 - Other specified polyneuropathies Plan to address problem: Continue gabapentin (5) BPH (benign prostatic hyperplasia) Current Visit: Yes Status: Chronic Qualifiers: Lower urinary tract symptom presence: symptoms present Plan to address problem: Continue Flomax (6) DVT prophylaxis Current Visit: No Status: Acute Plan to address problem: SCDs and GI prophylaxis Subjective Date of service: 10/04/19 Principal diagnosis: Status post IPP Interval history: Postop patient doing well Objective - Constitutional Vitals: Vital Signs - 12hr 10/03/19 10/03/19 10/03/19 21:57 22:31 23:31 Temperature 99.2 F Pulse Rate 84 Respiratory 18 20 20 Rate Blood Pressure 143/70 [Left] O2 Sat by Pulse 98 Oximetry 10/04/19 05:21 Temperature Pulse Rate Respiratory 20 Rate Blood Pressure [Left] O2 Sat by Pulse Oximetry General appearance: Present: no acute distress, well-nourished - EENT Eyes: PERRL, EOM intact ENT: hearing intact, clear oral mucosa Ears: bilateral: normal - Neck Neck: supple, normal ROM - Respiratory Respiratory effort: normal Respiratory: bilateral: CTA - Breasts Breasts: normal - Cardiovascular Heart rate: 78 Rhythm: regular Heart Sounds: Present: S1 & S2. Absent: gallop, rub Extremities: pulses intact, No edema, normal color, Full ROM - Gastrointestinal General gastrointestinal: Present: soft, non-tender, non-distended, normal bowel sounds - Genitourinary Male genitourinary: normal - Integumentary Integumentary: clear, warm, dry - Musculoskeletal Musculoskeletal: 1, strength equal bilaterally - Neurologic Neurologic: moves all extremities - Psychiatric Psychiatric: memory intact, appropriate mood/affect, intact judgment & insight - Labs CBC & Chem 7: 09/29/19 10:20 09/29/19 10:20 Labs: Abnormal lab results 10/03/19 10/03/19 Range/Units 10:05 12:02 POC Glucose 151 H 151 H (70-105)
[2019-10-04] MEDS: LISINOPRIL 10 MG TAB PO SCH ×2 (08:15→10:36)
[2019-10-04] MEDS: HYDROmorphone 2 MG TAB PO PRN (08:16)
[2019-10-04] MEDS: GABAPENTIN 300 MG CAP PO SCH ×3 (08:17→22:27)
[2019-10-04] MEDS: INSULIN REGULAR, HUMAN 100 UNIT/ML 3ML VIAL SUB-Q SCH ×5 (08:22→23:48)
[2019-10-04] MEDS: ceFAZolin/NS 1 GM/50 ML 1 GM/50 ML BAG IV SCH ×4 (14:06→22:27)
[2019-10-04] MEDS: hydroCHLOROthiazide 12.5 MG CAP PO SCH (15:37)
--- NOTE | 2019-10-04 17:54 | Event Note ---
Date: 10/04/19 pt unable to urinate replace carlisle increase flomax to 2qd voiding trial in am (+ prostatic edema)
[2019-10-04] MEDS: TAMSULOSIN 0.4 MG CAP PO SCH ×3 (19:34→22:27)
[2019-10-04] MEDS: PRAVASTATIN 80 MG TAB PO SCH ×2 (19:34→22:25)
[2019-10-04] MEDS: metFORMIN XR 500MG TAB PO SCH (20:53)
[2019-10-04] MEDS: DONEPEZIL 5 MG TAB PO SCH (22:27)
[2019-10-05] MEDS: ceFAZolin/NS 1 GM/50 ML 1 GM/50 ML BAG IV SCH ×2 (05:41→14:00)
[2019-10-05] MEDS: INSULIN REGULAR, HUMAN 100 UNIT/ML 3ML VIAL SUB-Q SCH ×3 (07:30→17:07)
[2019-10-05] MEDS: metFORMIN XR 500MG TAB PO SCH (11:23)
[2019-10-05] MEDS: TAMSULOSIN 0.4 MG CAP PO SCH (11:24)
[2019-10-05] MEDS: hydroCHLOROthiazide 12.5 MG CAP PO SCH (11:24)
[2019-10-05] MEDS: GABAPENTIN 300 MG CAP PO SCH ×2 (11:24→14:08)
[2019-10-05] MEDS: LISINOPRIL 10 MG TAB PO SCH (11:25)
[2019-10-05] MEDS: HYDROmorphone 2 MG TAB PO PRN ×2 (11:26→19:55)
[2019-10-05 20:06] VITALS: BP 153/77
== END 2019-10-05 21:45 | disposition home or self-care (01) ==
LOC: OR 06:15 → 3A 09:40 → 3B-SURG 17:18
PROVIDERS: ADMIT Urology; ATTEND Urology
DX: Z03.818 Encounter for observation for suspected exposure to other biological agents ruled out (principal); N52.01 Erectile dysfunction due to arterial insufficiency; N40.1 Benign prostatic hyperplasia with lower urinary tract symptoms; I10 Essential (primary) hypertension; E78.2 Mixed hyperlipidemia; E11.40 Type 2 diabetes mellitus with diabetic neuropathy, unspecified; Z71.3 Dietary counseling and surveillance; Z79.84 Long term (current) use of oral hypoglycemic drugs; Z79.899 Other long term (current) drug therapy; Z88.5 Allergy status to narcotic agent
CPT/HCPCS: 36415; 54405; 55175; 80053; 82962; 85027; 88302; 93005; 94660; 96361; 96365; 96366; 96367; 96375; A9270; C1813; G0378; J0690; J1170; J1580; J2250; J2370; J2405; J2704; J3370; J3490; J7030; J7040; J7120; U0003; 88305; J1815

== ENCOUNTER 2019-12-10 14:24 | Emergency (ER) | payer MEDICARE, OTHER ==
--- NOTE | 2019-12-10 16:02 | XRay Report ---
CHEST 2 VIEWS INDICATION / CLINICAL INFORMATION: cough. COMPARISON: 01/05/2019 FINDINGS: SUPPORT DEVICES: None. HEART / MEDIASTINUM: No significant abnormality. LUNGS / PLEURA: No significant pulmonary or pleural abnormality. No pneumothorax. ADDITIONAL FINDINGS: No significant additional findings. IMPRESSION: No significant abnormality or change from 01/05/2019 Signer Name: Jose Pascal MD FACR Signed: 12/10/2019 3:57 PM Workstation Name: [id number]
[2019-12-10 19:00] VITALS: BP 177/89
[2019-12-10 20:27] LABS: Bilirubin,Urine NEG (Negative); Blood,Urine NEG (Negative); Color,Urine Yellow (Yellow); Mucus,Urine FEW /HPF; Protein,Urine <15 mg/dL mg/dL (Negative); WBC,Urine < 1.0 /HPF (0.0-6.0)
--- NOTE | 2019-12-10 20:39 | Emergency Department Report ---
<RICKIE CHRISTIANSON - Last Filed: 12/10/19 22:50> ED General Adult HPI - General Chief complaint: Upper Respiratory Infection Stated complaint: C/GROIN PAIN Time Seen by Provider: 12/10/19 19:04 - Related Data Home Medications Medication Instructions Recorded Confirmed Last Taken Tamsulosin [Flomax] 0.4 mg PO QHS 01/13/19 10/03/19 3 Days Ago ~09/30/19 Aspirin 325 mg PO QDAY 09/28/19 10/03/19 1 Week Ago ~09/26/19 Lisinopril/Hydrochlorothiazide 1 each PO DAILY 09/29/19 09/29/19 10/03/19 04:00 [Zestoretic 10-12.5 mg Tablet] donepeziL [Aricept] 5 mg PO QHS 09/29/19 09/29/19 10/01/19 Previous Rx's Medication Instructions Recorded Last Taken Type Gabapentin 300 mg PO TID #30 capsule 11/10/12 1 Month Ago Rx ~09/02/19 Simvastatin [Zocor TAB] 40 mg PO QHS #30 tablet 11/10/12 10/01/19 Rx metFORMIN XR [Glucophage XR] 500 mg PO QDAY #30 tab 01/18/19 10/01/19 Rx Benzonatate 200 mg PO TID PRN #30 capsule 12/10/19 Unknown Rx traMADoL [Ultram 50 MG tab] 50 mg PO Q6HR PRN #10 tablet 12/10/19 Unknown Rx Allergies Allergy/AdvReac Type Severity Reaction Status Date / Time codeine Allergy Vomiting Verified 09/28/19 11:12 ED Past Medical Hx - Medications Home Medications: Home Medications Medication Instructions Recorded Confirmed Last Taken Type Gabapentin 300 mg PO TID #30 capsule 11/10/12 10/03/19 1 Month Ago Rx ~09/02/19 Simvastatin [Zocor TAB] 40 mg PO QHS #30 tablet 11/10/12 09/28/19 10/01/19 Rx Tamsulosin [Flomax] 0.4 mg PO QHS 01/13/19 10/03/19 3 Days Ago History ~09/30/19 metFORMIN XR [Glucophage XR] 500 mg PO QDAY #30 tab 01/18/19 09/28/19 10/01/19 Rx Aspirin 325 mg PO QDAY 09/28/19 10/03/19 1 Week Ago History ~09/26/19 Lisinopril/Hydrochlorothiazide 1 each PO DAILY 09/29/19 09/29/19 10/03/19 04:00 History [Zestoretic 10-12.5 mg Tablet] donepeziL [Aricept] 5 mg PO QHS 09/29/19 09/29/19 10/01/19 History Benzonatate 200 mg PO TID PRN #30 capsule 12/10/19 Unknown Rx traMADoL [Ultram 50 MG tab] 50 mg PO Q6HR PRN #10 tablet 12/10/19 Unknown Rx ED Medical Decision Making - Radiology Data Radiology results: report reviewed [facility] [address] [place] [address] Ultrasound Report Signed Patient: CARLOS ENRIQUE VICKERS JR MR#: [id number] : 1950 Acct:[id number] Age/Sex: 69 / M ADM Date: 12/10/19 Loc: ED Attending Dr: Ordering Physician: VINICIUS EATON Date of Service: 12/10/19 Procedure(s): US testicular doppler comp Accession Number(s): [id number] cc: VINICIUS EATON US testicular doppler comp INDICATION / CLINICAL INFORMATION: bilateral pain. COMPARISON: None available. FINDINGS: Small bilateral hydroceles are present. The testicles are normal in size and appearance. Normal symmetric blood flow seen in both testicles. IMPRESSION: Small bilateral hydroceles, otherwise negative exam Signer Name: Jose Pascal MD FACR Signed: 12/10/2019 10:07 PM Workstation Name: [id number] Transcribed By: MS Dictated By: Jose Pascal MD Electronically Authenticated By: Jose Pascal MD Signed Date/Time: 12/10/192206 DD/ 05 TD/TT: ED Disposition Clinical Impression: Cough, Persistent testicular pain, Bilateral hydrocele Disposition: DC-01 TO HOME OR SELFCARE Condition: Stable Instructions: Testicle Pain (ED), Cold Symptoms (ED) Additional Instructions: Please follow-up with your urologist, on 12/12/2019 Prescriptions: Benzonatate 200 mg PO TID PRN #30 capsule PRN Reason: Cough traMADoL [Ultram 50 MG tab] 50 mg PO Q6HR PRN #10 tablet PRN Reason: Pain Referrals: CHRISSIE EVANS MD [Primary Care Provider] - 3-5 Days Your, urologist [Other] - 3-5 Days Forms: Work/School Release Form(ED) <VINICIUS EATON - Last Filed: 12/11/19 14:02> ED General Adult HPI - General Source: patient Mode of arrival: Ambulatory Limitations: No Limitations - History of Present Illness Initial comments: 69-year-old -[place] male patient with history of hypertension, CVA, and diabetes presents with complaints of testicular pain x4 months and cough x4 days. He denies any fever/chills/sweats, shortness of breath, hemoptysis, chest pain, recent known sick contacts, swelling in his limbs, or history of smoking/CHF. Patient reports that his pain has been ongoing in his testicles since having a penile pump placed by Dr. Vinson. Patient reports he missed his follow-up appointment for an ultrasound 2 weeks ago. He denies any penile discharge, hematuria, dysuria, penile swelling/testicular swelling, or abdominal pain. He rates his current pain as a 5/10 in severity. ED Review of Systems ROS: Stated complaint: C/GROIN PAIN Other details as noted in HPI Constitutional: denies: chills, fever, malaise Eyes: denies: eye pain, eye discharge, vision change ENT: denies: ear pain, throat pain Respiratory: cough. denies: shortness of breath, wheezing Cardiovascular: denies: chest pain, palpitations Endocrine: no symptoms reported Gastrointestinal: denies: abdominal pain, nausea, diarrhea Genitourinary: testicular pain. denies: urgency, dysuria, frequency, hematuria, discharge, testicular mass Musculoskeletal: denies: back pain, joint swelling, arthralgia Skin: denies: rash, lesions Neurological: denies: headache, weakness, paresthesias Psychiatric: denies: anxiety, depression Hematological/Lymphatic: denies: easy bleeding, easy bruising ED Past Medical Hx - Past Medical History Previous Medical History?: Yes Hx Hypertension: Yes Hx CVA: Yes (left side wkness) Hx Heart Attack/AMI: No Hx Congestive Heart Failure: No Hx Diabetes: Yes Hx Liver Disease: No Hx Renal Disease: No Hx Headaches / Migraines: Yes Hx Psychiatric Treatment: Yes Hx HIV: No - Surgical History Past Surgical History?: Yes Additional Surgical History: left eye. LEFT ROTATOR CUFF - Social History Smoking Status: Never Smoker ED Physical Exam - General Limitations: No Limitations General appearance: alert, in no apparent distress - Head Head exam: Present: atraumatic, normocephalic - Eye Eye exam: Present: normal appearance - ENT ENT exam: Present: normal exam - Neck Neck exam: Present: normal inspection - Respiratory Respiratory exam: Present: normal lung sounds bilaterally. Absent: respiratory distress, wheezes, rales, rhonchi, chest wall tenderness, accessory muscle use - Cardiovascular Cardiovascular Exam: Present: regular rate, normal rhythm. Absent: systolic murmur, diastolic murmur, rubs, gallop - GI/Abdominal GI/Abdominal exam: Present: soft. Absent: distended, tenderness, guarding, rebound, rigid - exam: Present: testicular tenderness (Bilaterally; no swelling, erythema, or lesions noted) External exam: Present: normal external exam - Neurological Exam Neurological exam: Present: alert, oriented X3 - Psychiatric Psychiatric exam: Present: normal affect, normal mood - Skin Skin exam: Present: warm, dry, intact, normal color. Absent: rash, cyanosis, diaphoretic, erythema, petechiae, ecchymosis ED Course Vital Signs 12/10/19 14:28 Temperature 98.7 F Pulse Rate 79 Respiratory 20 Rate Blood Pressure 177/89 O2 Sat by Pulse 98 Oximetry ED Medical Decision Making - Medical Decision Making 69-year-old -[place] male patient with history of hypertension, CVA, and diabetes presents with complaints of testicular pain x4 months and cough x4 days. He denies any fever/chills/sweats, shortness of breath, hemoptysis, chest pain, recent known sick contacts, swelling in his limbs, or history of smoking/CHF. Patient reports that his pain has been ongoing in his testicles s david having a penile pump placed by Dr. Vinson. Patient reports he missed his follow-up appointment for an ultrasound 2 weeks ago. He denies any penile discharge, hematuria, dysuria, penile swelling/testicular swelling, or abdominal pain. He rates his current pain as a 5/10 in severity. Lung exam is normal. Chest x-ray is normal. Patient's vitals are stable. Patient handed off to Nicolette Christianson PA-C pending testicular ultrasound results. Patient was instructed to follow-up with his urologist on 12/12/2019 for further evaluation and treatment. Critical care attestation.: If time is entered above; I have spent that time in minutes in the direct care of this critically ill patient, excluding procedure time. ED Disposition Is pt being admited?: No
--- NOTE | 2019-12-10 22:12 | Ultrasound Report ---
US testicular doppler comp INDICATION / CLINICAL INFORMATION: bilateral pain. COMPARISON: None available. FINDINGS: Small bilateral hydroceles are present. The testicles are normal in size and appearance. Normal symme tric blood flow seen in both testicles. IMPRESSION: Small bilateral hydroceles, otherwise negative exam Signer Name: Jose Pascal MD FACR Signed: 12/10/2019 10:07 PM Workstation Name: [id number]
[2019-12-10] MEDS ORDERED: NAPROXEN 500 MG TAB PO ONE (22:15)
== END 2019-12-11 07:06 | disposition home or self-care (01) ==
LOC: ED 14:24
DX: N43.3 Hydrocele, unspecified (principal); N50.812 Left testicular pain; N50.811 Right testicular pain; R05 Cough; I10 Essential (primary) hypertension; E11.9 Type 2 diabetes mellitus without complications; G43.909 Migraine, unspecified, not intractable, without status migrainosus; Z86.73 Personal history of transient ischemic attack (TIA), and cerebral infarction without residual deficits; Z98.890 Other specified postprocedural states; Z79.84 Long term (current) use of oral hypoglycemic drugs; Z79.899 Other long term (current) drug therapy; Z88.8 Allergy status to other drugs, medicaments and biological substances
CPT/HCPCS: 71046; 81001; 93975

== ENCOUNTER 2020-04-23 12:08 | Outpatient (CLI) | payer MEDICARE, OTHER ==
--- NOTE | 2020-04-23 14:21 | Ultrasound Report ---
ULTRASOUND RENAL INDICATION / CLINICAL INFORMATION: CHRONIC KIDNEY DISEASE. COMPARISON: None available. FINDINGS: RIGHT KIDNEY: Length = 10.6 cm. [normal > 9 cm] - Parenchymal Thickness = 1.1 cm. [normal > 1.5 cm] - Echogenicity: Normal. - Hydronephrosis: None. - Cyst or mass: No significant abnormality. - Stones: None seen. LEFT KIDNEY: Length = 10.7 cm. [normal > 9 cm] - Parenchymal Thickness = 1.8 cm. [normal > 1.5 cm] - Echogenicity: Normal. - Hydronephrosis: None. - Cyst or mass: A 2.4 x 1.7 cm cyst is identified near the superior pole - Stones: None seen. URINARY BLADDER: The bladder is partially distended. No discrete bladder mass is appreciated. There a ppear to be 2 cystic areas adjacent to the bladder which may represent diverticula. FREE FLUID: None. ADDITIONAL FINDINGS: None. IMPRESSION: 2.4 cm left ovarian cyst, otherwise, unremarkable kidneys. Diverticulosis of the bladder Consider further evaluation with CT. Signer Name: Lenny Michael Jr, MD Signed: 04/23/2020 2:17 PM Workstation Name: [id number]
== END 2020-04-23 12:09 | disposition home or self-care (01) ==
LOC: US 12:08
PROVIDERS: ATTEND Specialist
DX: N28.1 Cyst of kidney, acquired (principal); N18.31 Chronic kidney disease, stage 3a
CPT/HCPCS: 76770

== ENCOUNTER 2020-10-18 10:26 | Outpatient (CLI) | payer MEDICARE, OTHER ==
--- NOTE | 2020-10-18 12:01 | Magnetic Resonance Report ---
MRI ABDOMEN WITHOUT CONTRAST INDICATION: CHRONIC KIDNEY DISEASE,STAGE 3a, DIABETES. TECHNIQUE: Multiplanar, multisequence MR images were obtained. COMPARISON: Renal ultrasound from 04/23/2020 FINDINGS: LOWER CHEST: No significant abnormality. LIVER: No significant abnormality. GALLBLADDER: No significant abnormality. BILE DUCTS: No significant abnormality. PANCREAS: No significant abnormality. SPLEEN: No significant abnormality. ADRENALS: No significant abnormality. RIGHT KIDNEY / URETER: A mid pole right renal cyst measures up to 1.2 cm on image 23 of series 7. No other significant abnormalities. LEFT KIDNEY / URETER: A simple upper pole left renal cyst measures up to 2.1 cm on image 23 of series 7 without other significant abnormalities. STOMACH / SMALL BOWEL: No significant abnormality. COLON: No significant abnormality. APPENDIX: No significant abnormality. PERITONEUM: No free fluid. No fluid collection. LYMPH NODES: No significant adenopathy. AORTA / ARTERIES: No significant abnormality. ADDITIONAL FINDINGS: None. SKELETAL SYSTEM: No significant abnormality. IMPRESSION: Bilateral simple renal cysts as above without other significant abnormalities. Signer Name: Leo Ryan MD Signed: 10/18/2020 11:56 AM Workstation Name: [email or web address]
== END 2020-10-18 10:27 | disposition home or self-care (01) ==
LOC: MRI 10:26
PROVIDERS: ATTEND Specialist
DX: N28.1 Cyst of kidney, acquired (principal); N18.31 Chronic kidney disease, stage 3a
CPT/HCPCS: 74181

== ENCOUNTER 2021-07-29 20:59 | Emergency (ER) | payer MEDICARE, OTHER ==
[2021-07-29 21:51] LABS: Basophils % (Auto) 0.6 % (0.0-1.8); Eosinophils # (Auto) 0.3 K/mm3 (0.0-0.4); Eosinophils % (Auto) 3.8 % (0.0-4.3); Hematocrit 35.7 % (35.5-45.6); Hemoglobin 11.5 gm/dl (11.8-15.2); Lymphocytes # (Auto) 2.5 K/mm3 (1.2-5.4); Lymphocytes % (Auto) 31.6 % (13.4-35.0); Mean Corpuscular HGB Conc 32 % (32-34); Monocytes # (Auto) 1.1 K/mm3 (0.0-0.8); Monocytes % (Auto) 14.4 % (0.0-7.3); Platelet Count 179 K/mm3 (140-440); Red Blood Count 5.62 M/mm3 (3.65-5.03); Red Cell Distribution Width 17.6 % (13.2-15.2)
[2021-07-29 21:55] LABS: Mean Corpuscular Volume 64 fl (84-94)
[2021-07-29 22:02] LABS: INR 0.9 (0.87-1.13)
[2021-07-29 22:05] LABS: BUN/Creatinine Ratio 11; Blood Urea Nitrogen 15 mg/dL (9-20); Calcium 9.2 mg/dL (8.4-10.2); Hemolysis Index 9
--- NOTE | 2021-07-29 22:58 | XRay Report ---
CHEST 2 VIEWS INDICATION / CLINICAL INFORMATION: Chest Pain. COMPARISON: 12/10/2019 FINDINGS: SUPPORT DEVICES: None. HEART / MEDIASTINUM: No significant abnormality. LUNGS / PLEURA: No significant pulmonary or pleural abnormality. No pneumothorax. ADDITIONAL FINDINGS: No significant additional findings. IMPRESSION: 1. No acute findings. Signer Name: Himanshu Ortiz MD Signed: 07/29/2021 10:53 PM Workstation Name: [id number]
--- NOTE | 2021-07-30 08:47 | Emergency Department Report ---
ED Chest Pain HPI - General Chief Complaint: Chest Pain Stated Complaint: CHEST PAIN x1 DAY PUI?: No Time Seen by Provider: 07/30/21 08:42 Source: patient Mode of arrival: Ambulatory Limitations: No Limitations - History of Present Illness Initial Comments: Mr. Carpio is a 71-year-old male who comes to the emergency room last night with chest pain. He states that it was dull under his sternum worse after he ate. However, by the time I seen him he is pain-free and in no distress. Patient has been about 12 hours in the ER. His lab work has been done including troponins x3 that are negative. Patient denies any cardiac risk factors. However, he has numerous risk factors. Patient is ambulatory to fast track with no chest pain. No shortness of breath. No fever or chills. Patient denies nausea vomiting diarrhea. He denies any recent fall or trauma. He denies any cough. He denies swelling of his legs. MD Complaint: chest pain -: Gradual, days(s) Pain Location: substernal Severity: mild Severity scale (0 -10): 0 Quality: dull Consistency: intermittent Improves With: nothing Worsens With: nothing re: denies: nausea, vomting, diaphoresis, dyspnea, sense of impending doom Other Symptoms: denies: cough, fever, syncope, rash, acid taste in mouth, leg swelling, palpitations, burping Treatments Prior to Arrival: none Aspirin use within the Past 7 Days: (0) No - Related Data Home Medications Medication Instructions Recorded Confirmed Last Taken Tamsulosin [Flomax] 0.4 mg PO QHS 01/13/19 10/03/19 3 Days Ago ~09/30/19 Aspirin 325 mg PO QDAY 09/28/19 10/03/19 1 Week Ago ~09/26/19 Lisinopril/Hydrochlorothiazide 1 each PO DAILY 09/29/19 09/29/19 10/03/19 04:00 [Zestoretic 10-12.5 mg Tablet] donepeziL [Aricept] 5 mg PO QHS 09/29/19 09/29/19 10/01/19 Previous Rx's Medication Instructions Recorded Last Taken Type Gabapentin 300 mg PO TID #30 capsule 11/10/12 1 Month Ago Rx ~09/02/19 Simvastatin (NF) [Zocor TAB] 40 mg PO QHS #30 tablet 11/10/12 10/01/19 Rx metFORMIN XR [Glucophage XR] 500 mg PO QDAY #30 tab 01/18/19 10/01/19 Rx Benzonatate 200 mg PO TID PRN #30 capsule 12/10/19 Unknown Rx traMADoL [Ultram 50 MG tab] 50 mg PO Q6HR PRN #10 tablet 12/10/19 Unknown Rx Allergies Allergy/AdvReac Type Severity Reaction Status Date / Time codeine Allergy Vomiting Verified 09/28/19 11:12 Heart Score - HEART Score History: Slightly suspicious EKG: Non-specific Age: > 65 Risk factors: > 3 risk factors or hx of atherosclerotic disease Troponin: < normal limit HEART Score: 5 - EKG Read Time Time EKG Completed: 21:15 EKG Read Time: 21:15 - Critical Actions Critical Actions: 4-6 pts:12-16.6% risk of adverse cardiac event. Should be admitted ED Review of Systems ROS: Stated complaint: CHEST PAIN x1 DAY Other details as noted in HPI Comment: All other systems reviewed and negative ED Past Medical Hx - Past Medical History Previous Medical History?: Yes Hx Hypertension: Yes Hx CVA: Yes (left side wkness) Hx Heart Attack/AMI: No Hx Congestive Heart Failure: No Hx Diabetes: Yes Hx Liver Disease: No Hx Renal Disease: No Hx Headaches / Migraines: Yes Hx Psychiatric Treatment: Yes Hx HIV: No - Surgical History Past Surgical History?: Yes Additional Surgical History: left eye. LEFT ROTATOR CUFF - Family History Family history: no significant - Social History Smoking Status: Never Smoker Substance Use Type: Alcohol - Medications Home Medications: Home Medications Medication Instructions Recorded Confirmed Last Taken Type Gabapentin 300 mg PO TID #30 capsule 11/10/12 10/03/19 1 Month Ago Rx ~09/02/19 Simvastatin (NF) [Zocor TAB] 40 mg PO QHS #30 tablet 11/10/12 09/28/19 10/01/19 Rx Tamsulosin [Flomax] 0.4 mg PO QHS 01/13/19 10/03/19 3 Days Ago History ~09/30/19 metFORMIN XR [Glucophage XR] 500 mg PO QDAY #30 tab 01/18/19 09/28/19 10/01/19 Rx Aspirin 325 mg PO QDAY 09/28/19 10/03/19 1 Week Ago History ~09/26/19 Lisinopril/Hydrochlorothiazide 1 each PO DAILY 09/29/19 09/29/19 10/03/19 04:00 History [Zestoretic 10-12.5 mg Tablet] donepeziL [Aricept] 5 mg PO QHS 09/29/19 09/29/19 10/01/19 History Benzonatate 200 mg PO TID PRN #30 capsule 12/10/19 Unknown Rx traMADoL [Ultram 50 MG tab] 50 mg PO Q6HR PRN #10 tablet 12/10/19 Unknown Rx ED Physical Exam - General Limitations: No Limitations General appearance: alert, in no apparent distress - Head Head exam: Present: atraumatic, normocephalic - Eye Eye exam: Present: normal appearance - ENT ENT exam: Present: mucous membranes moist - Neck Neck exam: Present: normal inspection - Respiratory Respiratory exam: Present: normal lung sounds bilaterally. Absent: respiratory distress - Cardiovascular Cardiovascular Exam: Present: regular rate, normal rhythm. Absent: systolic murmur, diastolic murmur, rubs, gallop - GI/Abdominal GI/Abdominal exam: Present: soft, normal bowel sounds - Rectal Rectal exam: Present: deferred - Extremities Exam Extremities exam: Present: normal inspection - Back Exam Back exam: Present: normal inspection - Neurological Exam Neurological exam: Present: alert, oriented X3 - Psychiatric Psychiatric exam: Present: normal affect, normal mood - Skin Skin exam: Present: warm, dry, intact, normal color. Absent: rash ED Course Vital Signs 07/29/21 07/30/21 21:24 09:59 Temperature 98.6 F Pulse Rate 85 70 Respiratory 18 16 Rate Blood Pressure 189/89 Blood Pressure 162/80 [Left] O2 Sat by Pulse 95 99 Oximetry CHRIS score - Chris Score Age > 65: (1) Yes Aspirin use within the Past 7 Days: (0) No 3 or more CAD Risk Factors: (1) Yes 2 or more Angina events in past 24 hrs: (0) No Known CAD with more than 50% Stenosis: (0) No Elevated Cardiac Markers: (0) No ST Deviation Greater than 0.5mm: (0) No CHRIS Score: 2 ED Medical Decision Making - Lab Data Result diagrams: 07/29/21 21:31 06/06/22 21:31 - EKG Data -: EKG Interpreted by Me EKG shows normal: sinus rhythm Rate: normal - EKG Data When compared to previous EKG there are: no significant change Interpretation: no acute changes - Radiology Data Radiology results: report reviewed, image reviewed No acute process - Medical Decision Making Labs 07/29/21 07/29/21 07/29/21 21:31 21:31 21:31 WBC 7.9 RBC 5.62 H Hgb 11.5 L Hct 35.7 MCV 64 L MCH 21 L MCHC 32 RDW 17.6 H Plt Count 179 Lymph % (Auto) 31.6 [place] % (Auto) 14.4 H Eos % (Auto) 3.8 Baso % (Auto) 0.6 Lymph # (Auto) 2.5 [place] # (Auto) 1.1 H Eos # (Auto) 0.3 Baso # (Auto) 0.0 Seg Neutrophils % 49.6 Seg Neutrophils # 3.9 PT 13.1 INR 0.90 Sodium 135 L Potassium 3.8 Chloride 101.6 Carbon Dioxide 23 Anion Gap 14 BUN 15 Creatinine 1.4 H Estimated GFR > 60 BUN/Creatinine Ratio 11 Glucose 138 H Calcium 9.2 Troponin T < 0.010 07/30/21 07/30/21 00:43 03:05 WBC RBC Hgb Hct MCV MCH MCHC RDW Plt Count Lymph % (Auto) [place] % (Auto) Eos % (Auto) Baso % (Auto) Lymph # (Auto) [place] # (Auto) Eos # (Auto) Baso # (Auto) Seg Neutrophils % Seg Neutrophils # PT INR Sodium Potassium Chloride Carbon Dioxide Anion Gap BUN Creatinine Estimated GFR BUN/Creatinine Ratio Glucose Calcium Troponin T < 0.010 < 0.010 Vital Signs 07/29/21 07/30/21 21:24 09:59 Temperature 98.6 F Pulse Rate 85 70 Respiratory 18 16 Rate Blood Pressure 189/89 Blood Pressure 162/80 [Left] O2 Sat by Pulse 95 99 Oximetry X-ray noted. Labs noted. Vital signs normal Exam unremarkable By the time I saw patient he had been here 11 hours. He had 3 negative troponins. He denies any chest pain chest pain shortness of breath or other complaint on my exam. In fact he needs me in the hallway wanting to go home. His is at the bedside. I discussed with patient and his that given his age it would be recommended that he have a repeat stress test. Per the EMR its been since 2013 since he had 1. I have given him a referral to Dr. Phipps to follow-up. Patient and verbalized understanding of the importance of follow-up. On discharge patient is ambulatory, not ill nontoxic. He is taking p.o. He is ambulating without chest pain. Patient discharged home with discharge plan of care including diet, activity, m edications and follow-up. He and his verbalized understanding of plan of care - Differential Diagnosis Rule out ACS Critical care attestation.: If time is entered above; I have spent that time in minutes in the direct care of this critically ill patient, excluding procedure time. ED Disposition Clinical Impression: Atypical chest pain Disposition: 01 HOME / SELF CARE / HOMELESS Is pt being admited?: No Does the pt Need Aspirin: No Condition: Stable Instructions: Nonspecific Chest Pain, Adult Additional Instructions: continue home meds low fat low salt diet stay well hydrated follow up with pcp paul referral below should you need it follow up with cardiology paul - you need repeat cardiac tests referral below Referrals: JERZY YANEZ MD [Staff Physician] - 3-5 Days MINDY HER MD [Primary Care Provider] - 3-5 Days Time of Disposition: 08:46
[2021-07-30 10:00] VITALS: BP 162/80
--- NOTE | 2021-07-30 12:31 | Electrocardiograph Report ---
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
== END 2021-07-30 10:03 | disposition home or self-care (01) ==
LOC: ED 20:59
DX: R07.9 Chest pain, unspecified (principal); I10 Essential (primary) hypertension; E11.9 Type 2 diabetes mellitus without complications; Z86.73 Personal history of transient ischemic attack (TIA), and cerebral infarction without residual deficits; G43.909 Migraine, unspecified, not intractable, without status migrainosus; Z91.09 Other allergy status, other than to drugs and biological substances; Z79.899 Other long term (current) drug therapy
CPT/HCPCS: 36415; 71046; 80048; 84484; 85025; 85610; 93005; 99283